=== PATIENT | male | born 1930 | race Caucasian/White ===

== ENCOUNTER 2016-09-10 18:24 | Emergency (ER) | payer MEDICARE ==
[2016-09-10 19:02] VITALS: BP 142/55
--- NOTE | 2016-09-10 19:30 | UC ---
Abdominal Pain Male HPI - HPI Summary HPI Summary: SUDDEN ONSET OF DIFFUSE "BURNING" ABDOMINAL PAIN TODAY AROUND NOON. FEVER 102.8 AT 4:30PM. TOOK 2 TYLENOL UNKNOWN STRENGTH. FEELS OVERALL MALAISE, FATIGUED, WEAK. DENIES CP, SOB, NAUSEA. NO DIARRHEA. URINE IS DARK. HAS SOME FREQUENCY BUT NO PAIN WITH URINATION. HAS HAD SOME INCONTINENCE TODAY WHICH IS UNUSUAL. FEELS BETTER NOW THAN AT ONSET. IS HERE VISITING FROM [place]. ARRIVED YESTERDAY. - History of Current Complaint Chief Complaint: UCAbdominalPain Stated Complaint: NAUSEA,FREQ URINATING,FEVER Time Seen by Provider: 09/10/16 18:40 Hx Obtained From: Patient, Family/Manager Pacu - Onset/Duration: Sudden Onset, Lasting Hours, Still Present Timing: Constant Severity Initially: Moderate Severity Currently: Moderate Pain Intensity: 3 Pain Scale Used: 0-10 Numeric Location: Diffuse Radiates: No Character: Burning Aggravating Factor(s):: Nothing Alleviating Factor(s): Rest Associated Signs And Symptoms: Positive: Fever, Urinary Symptoms. Negative: Cough, Chest Pain, Back Pain, Constipation, Blood in Stool, Decreased Appetite, Nausea, Vomiting, Diarrhea, Penile Discharge - Allergies/Home Medications Allergies/Adverse Reactions: Allergies Allergy/AdvReac Type Severity Reaction Status Date / Time Penicillins Allergy Rash Verified 09/10/16 18:50 Home Medications: Home Medications Acetaminophen TAB* [Tylenol TAB*] 650 mg PO Q6H PRN 09/10/16 [History Confirmed 09/10/16] Aspirin [Aspirin Adult Low Strengt] 09/10/16 [History] Folic Acid 800 mcg PO 09/10/16 [History] Lisinopril [Zestril 10 MG-] 10 mg PO DAILY 09/10/16 [History Confirmed 09/10/16] Metoprolol Succinate [Toprol Xl] 25 mg PO 09/10/16 [History] Omeprazole CAP* [Prilosec CAP* 20 MG] 20 mg PO DAILY 09/10/16 [History Confirmed 09/10/16] PMH/Surg Hx/FS Hx/Imm Hx - Additional Past Medical History Additional PMH: COLD AGGLUTININ AUTOIMMUNE DISORDER Cardiovascular History: Hypertension, Atrial Fibrillation Other Cancer History: LYMPHOMA - Surgical History Surgical History: Yes Surgery Procedure, Year, and Place: R hip reduction Mar 2016. appendectomy. tonsilectomy - Family History Known Family History: Negative: Hypertension - Social History Alcohol Use: Occasionally Substance Use Type: None Smoking Status (MU): Never Smoked Tobacco - Immunization History Most Recent Pneumonia Vaccination: Pt states has had it. Review of Systems Constitutional: Fever, Chills, Fatigue Respiratory: Negative Cardiovascular: Negative Gastrointestinal: Abdominal Pain Genitourinary: Frequency, Urgency, Other - INCONTINENT All Other Systems Reviewed And Are Negative: Yes Physical Exam Triage Information Reviewed: Yes Appearance: No Pain Distress, Well-Nourished, Ill-Appearing - APPEARS FATIGUED AND PALE Vital Signs: Initial Vital Signs Temp 98.9 F 09/10/16 18:53 Pulse 108 09/10/16 18:53 Resp 36 09/10/16 18:53 BP 142/55 09/10/16 18:53 Pulse Ox 98 09/10/16 18:53 Vital Signs Reviewed: Yes Eyes: Positive: Conjunctiva Clear ENT: Positive: Hearing grossly normal Neck: Positive: Supple Respiratory: Positive: Lungs clear, No respiratory distress, No accessory muscle use, Other: - TACHYPNEA. Negative: Accessory muscle use Cardiovascular: Positive: Tachycardia Abdomen Description: Positive: Soft, Other: - MILD TENDERNESS DIFFUSELY. NO RIGIDITY OR REBOUND. Negative: CVA Tenderness (R), CVA Tenderness (L), Distended, Guarding Bowel Sounds: Positive: Present Musculoskeletal: Positive: No Edema Neurological: Positive: Alert Psychological: Positive: Normal Response To Family, Age Appropriate Behavior Skin: Positive: Other - APPEARS PALE/YELLOW - PER THIS IS HIS NORMAL COLORATION. Negative: rashes Abd Pain Male Course/Dx - Course Course Of Treatment: PT UNABLE TO PROVIDE URINE SAMPLE. GIVEN CONSTELLATION OF SX WILL SEND TO ER FOR FURTHER EVAL. - Differential Dx/Clinical Impression Provider Diagnoses: ABDOMINAL PAIN/FEVER - Physician Notification/Consults Discussed Patient Care With: Penny Terrell - TO [facility] BY PRIVATE AR Time Discussed With Above Provider: 19:33 Instructed by Provider To: Will See In ED Discharge - Discharge Plan Condition: Fair Disposition: AGAINST MEDICAL ADVICE
== END 2016-09-10 19:25 | disposition left against medical advice (07) ==
LOC: UCEAST 18:24
DX: R10.84 Generalized abdominal pain (principal); R50.9 Fever, unspecified; I10 Essential (primary) hypertension; Z86.79 Personal history of other diseases of the circulatory system; Z85.72 Personal history of non-Hodgkin lymphomas
CPT/HCPCS: 99203; G0463

== ENCOUNTER 2016-09-10 20:00 | Inpatient (IN) | payer MEDICARE ==
--- NOTE | 2016-09-10 20:46 | RAD ---
INDICATION: Cough. Fever. Pneumonia. COMPARISON: None TECHNIQUE: An AP portable view obtained at 2022 hours is submitted. FINDINGS: Bones/Soft Tissues: There are no acute bony findings. Cardiomediastinal: The cardiomediastinal silhouette is normal. Lungs: There is infiltrate or atelectasis in left lung base with a 13 mm nodular opacity. Suggest follow-up. The remaining lung [place] are clear. Pleura: There are no pleural effusions. Other: None IMPRESSION: Small left basilar infiltrate or atelectasis with a left-sided nodule. Following therapy, suggest follow-up imaging to document complete resolution and exclude an underlying abnormality.
[2016-09-10 20:52] LABS: Comments Flag Yes; Hematocrit 26 % (42-52); Hemoglobin 8.7 g/dl (14.0-18.0); Mean Corpuscular HGB Conc 34 g/dl (31-36); Mean Corpuscular Hemoglobin 32 pg (27-31); Mean Corpuscular Volume 95 fL (80-94); Mean Platelet Volume 8 um3 (7.4-10.4); Red Blood Count 2.71 10^6/ul (4.0-5.4); Red Cell Distribution Width 16 % (10.5-15); White Blood Count 1.7 10^3/ul (3.5-10.8)
[2016-09-10 20:53] LABS: Add Diff/Slide Review? Slide Review Added
[2016-09-10 21:08] LABS: Albumin 3.9 g/dL (3.2-5.2); C Reactive Protein 10.61 mg/L (< 5.00); Calcium 8.9 mg/dL (8.6-10.3); EGFR African American 62.1 (>60); EGFR Non-African American 48.3 (>60); Globulin 1.6 g/dL (2-4); Potassium 3.6 mmol/L (3.5-5.0); Total Protein 5.5 g/dL (6.4-8.9)
[2016-09-10 21:10] LABS: Magnesium 1.5 mg/dL (1.9-2.7); Total Bilirubin 13.3 mg/dL (0.2-1.0); Troponin I 0.02 ng/mL (<0.04)
[2016-09-10] MEDS ORDERED: Ondansetron INJ* 2 MG/ML VIAL IV PRN (21:13)
[2016-09-10] MEDS ORDERED: traMADol TAB* 50 MG PO PRN (21:13)
[2016-09-10] MEDS ORDERED: Melatonin (NF) 3 MG TAB PO PRN (21:13)
[2016-09-10] MEDS ORDERED: cefTRIAXone(*) 1 GM ADVAN ONE (21:22)
--- NOTE | 2016-09-10 21:29 | HP ---
H&P (Free Text) History and Physical: PCP: [id number] Date/Time of Evaluation: 09/10/2016 2115 CC: abdominal burning HPI: Mr Torres is an 86YO male resident of [place] in town for his granddaughter's graduation who awoke this AM in his usual health to develop epigastric burning around noon lasting to 1600 before resolving. TUMS did not help. He then developed chills with a fever of 102.8F. He has had some increased urinary frequency with incontinence, but denies cough, congestion, N/V , chest pain, SOB, light-headedness, or other issues. 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 PMedHx marginal zone B-cell lymphoma B pneumonia admitted in [place], [place] July 2016 cold agglutinin disease chronic hemolytic anemia splenomegaly transfusion reaction HTN CKD GERD Ambulatory Orders Acetaminophen TAB* [Tylenol TAB*] 650 mg PO Q6H PRN 09/10/16 Aspirin [Aspirin Adult Low Strengt] 09/10/16 Folic Acid 800 mcg PO 09/10/16 Lisinopril [Zestril 10 MG-] 10 mg PO DAILY 09/10/16 Metoprolol Succinate [Toprol Xl] 25 mg PO 09/10/16 Omeprazole CAP* [Prilosec CAP* 20 MG] 20 mg PO DAILY 09/10/16 Allergies Penicillins Allergy (Verified 09/10/16 18:50) Rash PSurgHx R hip pinning w/ padilla Mar 2016 appendecomy tonsillectomy SocHx: no tobacco, alcohol, or recreational drug HX; live with his in [place]; 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 Father passed of prostate CA in his 80s. Older brother is alive at 93 with cold agglutinin disease & chronic leukemia in remission. Oldest sister passed of colon CA in her 60s. ROS: as above, otherwise reviewed and all were negative Constitutional: NAD, normally developed, well-nourished elderly white male vitals: Vital Signs Temp 36.5 C 09/10/16 20:50 Pulse 100 09/10/16 20:50 Resp 20 09/10/16 20:50 BP 127/60 09/10/16 20:50 Pulse Ox 97 09/10/16 20:50 Intake & Output 09/09/16 09/10/16 09/10/16 23:59 11:59 23:59 Weight 81.647 kg Other: Date of Last Bowel 09/10/16 Movement Estimated Stool Amount Medium HEENM: atraumatic; sclera/conjunctiva: icteric/clear; blephara: normal; hearing : clinically intact; oropharynx: clear, mucosa moist Neck: soft tissue: non-tender; thyroid: normal Pulmonary: clear to auscultation bilaterally, good aeration, no accessory muscle use CV: RR/RR, normal S1S2, no carotid bruit, no jugular venous distention, 2+ B DP/ PT, trace BLE edema Abdominal: soft, non-distended, non-tender, no rebound/guarding/rigidity, normoactive bowel sounds, no hepatosplenomegaly or masses, no costovertebral angle tenderness Musculoskeletal: general: grossly intact; gait: stable Integumental: jaundice; otherwise normal appearance and texture Psychiatric orientation: AA&O to PPS affect: calm mood: cooperative eye contact: good content: reliable responses: timely insight: good Testing: Lab Results 09/10/16 09/10/16 09/10/16 Range/Units 20:41 20:41 20:41 WBC 1.7 L (3.5-10.8) 10^3/ul RBC 2.71 L (4.0-5.4) 10^6/ul Hgb 8.7 L (14.0-18.0) g/dl Hct 26 L (42-52) % MCV 95 H (80-94) fL MCH 32 H (27-31) pg MCHC 34 (31-36) g/dl RDW 16 H (10.5-15) % Plt Count 78 L (150-450) 10^3/ul MPV 8 (7.4-10.4) um3 Neut % (Auto) 70.1 (38-83) % Lymph % (Auto) 5.2 L (25-47) % [place] % (Auto) 23.7 H (1-9) % Eos % (Auto) 0.3 (0-6) % Baso % (Auto) 0.7 (0-2) % Absolute Neuts (auto) 1.2 L (1.5-7.7) 10^3/ul Absolute Lymphs (auto) 0.1 L (1.0-4.8) 10^3/ul Absolute Monos (auto) 0.4 (0-0.8) 10^3/ul Absolute Eos (auto) 0 (0-0.6) 10^3/ul Absolute Basos (auto) 0 (0-0.2) 10^3/ul Absolute Nucleated RBC 0.01 10^3/ul Nucleated RBC % 0.6 INR (Anticoag Therapy) 1.21 H (0.89-1.11) APTT 24.5 L (26.0-36.3) seconds Sodium 135 (133-145) mmol/L Potassium 3.6 (3.5-5.0) mmol/L Chloride 103 (101-111) mmol/L Carbon Dioxide 23 (22-32) mmol/L Anion Gap 9 (2-11) mmol/L BUN 28 H (6-24) mg/dL Creatinine 1.40 H (0.67-1.17) mg/dL Est GFR ( Amer) 62.1 (>60) Est GFR (Non-Af Amer) 48.3 (>60) BUN/Creatinine Ratio 20.0 (8-20) Glucose 136 H (70-100) mg/dL Lactic Acid (0.5-2.0) mmol/L Calcium 8.9 (8.6-10.3) mg/dL Magnesium 1.5 L (1.9-2.7) mg/dL Total Bilirubin 13.30 H* (0.2-1.0) mg/dL AST 315 H (13-39) U/L ALT 297 H (7-52) U/L Alkaline Phosphatase 254 H (34-104) U/L Total Creatine Kinase 40 (10-223) U/L Troponin I 0.02 (<0.04) ng/mL C-Reactive Protein 10.61 H (< 5.00) mg/L B-Natriuretic Peptide ( - 100) pg/mL Total Protein 5.5 L (6.4-8.9) g/dL Albumin 3.9 (3.2-5.2) g/dL Globulin 1.6 L (2-4) g/dL Albumin/Globulin Ratio 2.4 (1-3) Amylase 30 (29-103) U/L Lipase 37 (11.0-82.0) U/L 09/10/16 09/10/16 Range/Units 20:41 20:41 WBC (3.5-10.8) 10^3/ul RBC (4.0-5.4) 10^6/ul Hgb (14.0-18.0) g/dl Hct (42-52) % MCV (80-94) fL MCH (27-31) pg MCHC (31-36) g/dl RDW (10.5-15) % Plt Count (150-450) 10^3/ul MPV (7.4-10.4) um3 Neut % (Auto) (38-83) % Lymph % (Auto) (25-47) % [place] % (Auto) (1-9) % Eos % (Auto) (0-6) % Baso % (Auto) (0-2) % Absolute Neuts (auto) (1.5-7.7) 10^3/ul Absolute Lymphs (auto) (1.0-4.8) 10^3/ul Absolute Monos (auto) (0-0.8) 10^3/ul Absolute Eos (auto) (0-0.6) 10^3/ul Absolute Basos (auto) (0-0.2) 10^3/ul Absolute Nucleated RBC 10^3/ul Nucleated RBC % INR (Anticoag Therapy) (0.89-1.11) APTT (26.0-36.3) seconds Sodium (133-145) mmol/L Potassium (3.5-5.0) mmol/L Chloride (101-111) mmol/L Carbon Dioxide (22-32) mmol/L Anion Gap (2-11) mmol/L BUN (6-24) mg/dL Creatinine (0.67-1.17) mg/dL Est GFR ( Amer) (>60) Est GFR (Non-Af Amer) (>60) BUN/Creatinine Ratio (8-20) Glucose (70-100) mg/dL Lactic Acid 2.1 H* (0.5-2.0) mmol/L Calcium (8.6-10.3) mg/dL Magnesium (1.9-2.7) mg/dL Total Bilirubin (0.2-1.0) mg/dL AST (13-39) U/L ALT (7-52) U/L Alkaline Phosphatase (34-104) U/L Total Creatine Kinase (10-223) U/L Troponin I (<0.04) ng/mL C-Reactive Protein (< 5.00) mg/L B-Natriuretic Peptide 110 H ( - 100) pg/mL Total Protein (6.4-8.9) g/dL Albumin (3.2-5.2) g/dL Globulin (2-4) g/dL Albumin/Globulin Ratio (1-3) Amylase (29-103) U/L Lipase (11.0-82.0) U/L ECG, personally reviewed: sinus tachycardia rate 101, no ischemia CXR, personally reviewed: IMPRESSION: Small left basilar infiltrate or atelectasis with a left-sided nodule. Following therapy, suggest follow-up imaging to document complete resolution and exclude an underlying abnormality. Impression: 86M HX B-cell lymphoma, recent pneumonia presents w/ LLL pneumonia DIAGNOSIS & PLAN Primary LLL pneumonia, community acquired : B pneumonia admitted in [place], [place] July 2016, request records : ANC 1.2k : IV ceftriaxone & azithromycin : IVFs : blood & sputum CXs : obtain records from PCP in [place] : supplemental oxygen : incentive spirometry : guiafenesin : supportive care Secondary marginal zone B-cell lymphoma : continue outpatient follow up with oncology cold agglutinin disease w/ chronic hemolytic anemia, & splenomegaly : periodic monitoring of H&H for progressive hemolysis HX transfusion reaction : no indication currently for transfusion HTN : continue lisinopril & metoprolol CKD : trend function GERD : continue omeprazole Admission Rational: inpatient for IVFs & IV ABX for LLL pneumonia in a patient at risk of rapid/terminal decompensation in the outpatient setting DVTp: heparin SQ & SCDs Code Status: full HCP:
[2016-09-10] MEDS ORDERED: Azithromycin IV(*) 500 MG in NS 0.9% 250 ML* 250 ML IVPB SCH (22:00)
[2016-09-10] MEDS ORDERED: cefTRIAXone VIAL(*) 1,000 MG in NS 0.9% 50 ML* 50 ML IVPB SCH (22:00)
--- NOTE | 2016-09-10 22:57 | ED ---
Nery Kirk Rebecca, scribed for Penny Terrell MD on 09/10/16 at 2021 . Abdominal Pain/Male - HPI Summary HPI Summary: Pt is an 86 y/o M referred from [facility] who presents to ED c/o abdominal pain. Sx began suddenly at 1200 today and has been constant since onset. Pain characterized as diffuse abdominal burning and is currently not present. Pain was 3/10 while being evaluated at [facility] and is currently ranked 0/10. Sx aggravated and alleviated by nothing, unchanged by lying flat. He additionally c/o fever, chills, generalized weakness, vomiting, urinary incontinence. Reports a fever of 102.8 at home at approximately 1630. Previously had a cough which was resolved completely by Mucinex DM, taken last night. Denies SOB. He was administered Tylenol at 1630 and it continued to be elevated. PMHx cold agglutinin disease (Dx 35 years ago), reporting his Hgb is 9 when it is doing well. PMHx PNA - [place] August 06[place]2016 and was on broad spectrum IV Abx (unsure of name). Pt is currently undergoing treatments for lymphoma (Dx February 2016) as well as the cold agglutinin disease. Pt states he cannot take levaquin, had a muscle reaction to that. Pt is visiting from [place]. Is scheduled for more chemo for his lymphoma on 09/13/16. - History of Current Complaint Chief Complaint: EDAbdPain Stated Complaint: ABD PAIN/CONV CARE Time Seen by Provider: 09/10/16 20:09 Hx Obtained From: Patient, Family/Behavioral Therapist - Onset/Duration: Sudden Onset, Lasting Hours, Still Present Timing: Constant Severity Initially: Mild - 3/10 Severity Currently: None Pain Intensity: 0 Pain Scale Used: 0-10 Numeric Location: Diffuse Radiates: No Character: Burning Aggravating Factor(s): Nothing Alleviating Factor(s): Nothing Associated Signs And Symptoms: Positive: Fever, Cough - resolved by Mucinex DM, Urinary Symptoms - Urinary incontinence, Vomiting, Other - Chills, generalized weakness; Denies SOB - Allergies/Home Medications Allergies/Adverse Reactions: Allergies Allergy/AdvReac Type Severity Reaction Status Date / Time Penicillins Allergy Rash Verified 09/10/16 18:50 PMH/Surg Hx/FS Hx/Imm Hx Previously Healthy: No Endocrine/Hematology History: Reports: Autoimmune Disease - Cold agglutinin disease Cardiovascular History: Reports: Hx Atrial Fibrillation, Hx Hypertension Respiratory History: Reports: Hx Pneumonia GI History: Reports: Hx Jaundice - from cold agglutinin disease - Cancer History Cancer Type, Location and Year: lymphoma Hx Chemotherapy: Yes - Surgical History Surgery Procedure, Year, and Place: R hip reduction Mar 2016. appendectomy. tonsilectomy Infectious Disease History: Reports: Hx Shingles Denies: Traveled Outside the [place] in Last 30 Days - Family History Known Family History: Negative: Hypertension - Social History Occupation: Retired Lives: With Family - in [place] Alcohol Use: Occasionally Substance Use Type: Reports: None Smoking Status (MU): Never Smoked Tobacco Review of Systems Positive: Fever - 102.8 at home, Chills, Other - generalized weakness Cardiovascular: Negative Positive: Cough - Resolved by Mucinex DM. Negative: Shortness Of Breath Positive: Abdominal Pain - diffuse burning, resolved, Vomiting Positive: incontinence - Urinary Positive: Other - jaundiced Neurological: Negative Psychological: Normal All Other Systems Reviewed And Are Negative: Yes Physical Exam Triage Information Reviewed: Yes Vital Signs On Initial Exam: Initial Vitals Temp Pulse Resp BP Pulse Ox 97.7 F 107 18 118/46 100 09/10/16 20:04 09/10/16 20:04 09/10/16 20:04 09/10/16 20:04 09/10/16 20:04 Vital Signs Reviewed: Yes Appearance: Positive: No Pain Distress, Well-Nourished, Ill-Appearing Skin: Positive: Jaundiced, Pale, Other - Sallow, appears jaundiced Eyes: Positive: Conjunctiva Clear ENT: Positive: Normal ENT inspection. Negative: Muffled/hoarse voice Neck: Positive: Supple Respiratory/Lung Sounds: Positive: Clear to Auscultation, Breath Sounds Present , Other - No respiratory distress Cardiovascular: Positive: RRR, Pulses are Symmetrical in both Upper and Lower Extremities, Other - Brisk capillary refill. Negative: Murmur Abdomen Description: Positive: Nontender, Soft, Splenomegaly - At least 3 fingers breadth below the costal margin Bowel Sounds: Positive: Present Musculoskeletal: Positive: Strength/ROM Intact Neurological: Positive: Alert, Oriented to Person Place, Time, Other - Muscle tone normal. Negative: Focal Deficit @, Slurred Speech Psychiatric: Positive: Normal Diagnostics - Vital Signs Vital Signs Temp Pulse Resp BP Pulse Ox 06/23/17 20:04 97.7 F 107 18 118/46 100 - Laboratory Lab Results: Lab Results 09/10/16 09/10/16 09/10/16 Range/Units 20:41 20:41 20:41 WBC 1.7 L (3.5-10.8) 10^3/ul RBC 2.71 L (4.0-5.4) 10^6/ul Hgb 8.7 L (14.0-18.0) g/dl Hct 26 L (42-52) % MCV 95 H (80-94) fL MCH 32 H (27-31) pg MCHC 34 (31-36) g/dl RDW 16 H (10.5-15) % Plt Count 78 L (150-450) 10^3/ul MPV 8 (7.4-10.4) um3 Neut % (Auto) 70.1 (38-83) % Lymph % (Auto) 5.2 L (25-47) % [place] % (Auto) 23.7 H (1-9) % Eos % (Auto) 0.3 (0-6) % Baso % (Auto) 0.7 (0-2) % Absolute Neuts (auto) 1.2 L (1.5-7.7) 10^3/ul Absolute Lymphs (auto) 0.1 L (1.0-4.8) 10^3/ul Absolute Monos (auto) 0.4 (0-0.8) 10^3/ul Absolute Eos (auto) 0 (0-0.6) 10^3/ul Absolute Basos (auto) 0 (0-0.2) 10^3/ul Absolute Nucleated RBC 0.01 10^3/ul Nucleated RBC % 0.6 Hem Pathologist Commnt Pending INR (Anticoag Therapy) 1.21 H (0.89-1.11) APTT 24.5 L (26.0-36.3) seconds Sodium 135 (133-145) mmol/L Potassium 3.6 (3.5-5.0) mmol/L Chloride 103 (101-111) mmol/L Carbon Dioxide 23 (22-32) mmol/L Anion Gap 9 (2-11) mmol/L BUN 28 H (6-24) mg/dL Creatinine 1.40 H (0.67-1.17) mg/dL Est GFR ( Amer) 62.1 (>60) Est GFR (Non-Af Amer) 48.3 (>60) BUN/Creatinine Ratio 20.0 (8-20) Glucose 136 H (70-100) mg/dL Lactic Acid (0.5-2.0) mmol/L Calcium 8.9 (8.6-10.3) mg/dL Magnesium 1.5 L (1.9-2.7) mg/dL Total Bilirubin 13.30 H* (0.2-1.0) mg/dL AST 315 H (13-39) U/L ALT 297 H (7-52) U/L Alkaline Phosphatase 254 H (34-104) U/L Total Creatine Kinase 40 (10-223) U/L Troponin I 0.02 (<0.04) ng/mL C-Reactive Protein 10.61 H (< 5.00) mg/L B-Natriuretic Peptide ( - 100) pg/mL Total Protein 5.5 L (6.4-8.9) g/dL Albumin 3.9 (3.2-5.2) g/dL Globulin 1.6 L (2-4) g/dL Albumin/Globulin Ratio 2.4 (1-3) Amylase 30 (29-103) U/L Lipase 37 (11.0-82.0) U/L 09/10/16/ Range/Units 20:41 20:41 WBC (3.5-10.8) 10^3/ul RBC (4.0-5.4) 10^6/ul Hgb (14.0-18.0) g/dl Hct (42-52) % MCV (80-94) fL MCH (27-31) pg MCHC (31-36) g/dl RDW (10.5-15) % Plt Count (150-450) 10^3/ul MPV (7.4-10.4) um3 Neut % (Auto) (38-83) % Lymph % (Auto) (25-47) % [place] % (Auto) (1-9) % Eos % (Auto) (0-6) % Baso % (Auto) (0-2) % Absolute Neuts (auto) (1.5-7.7) 10^3/ul Absolute Lymphs (auto) (1.0-4.8) 10^3/ul Absolute Monos (auto) (0-0.8) 10^3/ul Absolute Eos (auto) (0-0.6) 10^3/ul Absolute Basos (auto) (0-0.2) 10^3/ul Absolute Nucleated RBC 10^3/ul Nucleated RBC % Hem Pathologist Commnt INR (Anticoag Therapy) (0.89-1.11) APTT (26.0-36.3) seconds Sodium (133-145) mmol/L Potassium (3.5-5.0) mmol/L Chloride (101-111) mmol/L Carbon Dioxide (22-32) mmol/L Anion Gap (2-11) mmol/L BUN (6-24) mg/dL Creatinine (0.67-1.17) mg/dL Est GFR ( Amer) (>60) Est GFR (Non-Af Amer) (>60) BUN/Creatinine Ratio (8-20) Glucose (70-100) mg/dL Lactic Acid 2.1 H* (0.5-2.0) mmol/L Calcium (8.6-10.3) mg/dL Magnesium (1.9-2.7) mg/dL Total Bilirubin (0.2-1.0) mg/dL AST (13-39) U/L ALT (7-52) U/L Alkaline Phosphatase (34-104) U/L Total Creatine Kinase (10-223) U/L Troponin I (<0.04) ng/mL C-Reactive Protein (< 5.00) mg/L B-Natriuretic Peptide 110 H ( - 100) pg/mL Total Protein (6.4-8.9) g/dL Albumin (3.2-5.2) g/dL Globulin (2-4) g/dL Albumin/Globulin Ratio (1-3) Amylase (29-103) U/L Lipase (11.0-82.0) U/L Result Diagrams: 09/10/16 20:41 09/10/16 20:41 Lab Statement: Any lab studies that have been ordered have been reviewed, and results considered in the medical decision making process. - Radiology CXR Xray Interpretation: Positive (See Comments) - Small left basilar infiltrate or atelectasis with a left-sided nodule. Following therapy, suggest follow-up imaging to document complete resolution and exclude an underlying abnormality. Radiology Interpretation Completed By: Radiologist - EKG 2058 Cardiac Rate: Tachycardia - 101 bpm EKG Rhythm: Sinus Tachycardia EKG Interpretation: Nl AV/IV CT, nl QTC, negative axis (-27), LAD, no acute changes Re-Evaluation - Re-Evaluation First Eval Re-Evaluation Time: 21:12 Change: Unchanged Comment: Discussed CXR, EKG and lab results with patient. Explained discussion with Dr. Islas and that the pt will be admitted. Abdominal Pain Fem Course/Dx - Course Assessment/Plan: Pt is an 86 y/o M referred from [facility] who presents to ED c/o diffuse, burning abdominal pain since 1200 today. Pain was 3/10 while being evaluated at [facility] and is currently ranked 0/10. Sx aggravated and alleviated by nothing, unchanged by lying flat. He additionally c/o fever, chills, generalized weakness, vomiting, urinary incontinence. Reports a fever of 102.8 at home at approximately 1630. Previously had a cough which was resolved completely by Mucinex DM, taken last night. Denies SOB. He was administered Tylenol at 1630 and it continued to be elevated. PMHx cold agglutinin disease ( Dx 35 years ago), reporting his Hgb is 9 when it is doing well. PMHx PNA - [place] and was on broad spectrum IV Abx ( unsure of name). Pt is currently undergoing treatments for lymphoma (Dx February 2016) as well as the cold agglutinin disease. CXR reveals "Small left basilar infiltrate or atelectasis with a left-sided nodule. Following therapy, suggest follow-up imaging to document complete resolution and exclude an underlying abnormality." WBC of 1.7, RBC of 2.7, Lactic acid of 2.1, Total Bilirubin of 13.3, Hgb of 8.7, INR of 1.21, BNP of 110, APTT of 24.5, CRP of 10.61. Discussed care of pt with Dr. Islas, who accepts pt for admission. Pt will be admitted to hospitalist services with a Dx of left lower lobe PNA. He understands and agrees. Pt medications reviewed this visit. Allergies noted. - Diagnoses Differential Diagnosis/HQI/PQRI: Ischemic Bowel, Pancreatitis, Pneumonia, Urinary Tract Infection Provider Diagnoses: Left lower lobe pneumonia, Jaundice, Pancytopenia - Provider Notifications Discussed Care Of Patient With: Channing Islas Time Discussed With Above Provider: 21:10 Instructed by Provider To: Admit As Inpatient - Accepts pt for admission - Critical Care Time Critical Care Time: 30-74 min Discharge - Discharge Plan Condition: Good Disposition: ADMITTED TO [facility] Referrals: No Primary Care Phys,NOPCP [Primary Care Provider] - The documentation as recorded by the Nery king Rebecca accurately reflects the service I personally performed and the decisions made by , Penny Terrell MD.
[2016-09-10 23:35] LABS: Urine Bilirubin 1+ (Negative); Urine Glucose Negative (Negative); Urine Nitrite Negative (Negative)
[2016-09-10 23:36] LABS: Urine Bacteria 1+ (Absent)
[2016-09-11] MEDS: NS 0.9% 1000 ML* 1,000 ML IV SCH ×3 (00:12→13:33)
[2016-09-11] MEDS: Heparin VIAL(*) 5000 UNITS/ML VIAL (FIVE THOUSAND) SUBCUT SCH ×4 (05:36→22:16)
[2016-09-11] MEDS ORDERED: Omeprazole CAP* 20 MG PO SCH (06:00)
[2016-09-11 07:24] LABS: BUN/Creatinine Ratio 19.2 (8-20); Calcium 8.5 mg/dL (8.6-10.3); EGFR African American 70.8 (>60); Potassium 4.3 mmol/L (3.5-5.0)
[2016-09-11 08:43] LABS: Hematocrit 25 % (42-52); Hemoglobin 8.3 g/dl (14.0-18.0); Mean Corpuscular HGB Conc 33 g/dl (31-36); Mean Corpuscular Hemoglobin 30 pg (27-31); Mean Platelet Volume 9 um3 (7.4-10.4); Red Cell Distribution Width 16 % (10.5-15)
[2016-09-11] MEDS: Docusate CAP* 100 MG PO SCH ×2 (08:52→22:13)
[2016-09-11] MEDS: Lisinopril TAB* 10 MG PO SCH (08:52)
[2016-09-11] MEDS: Omeprazole CAP* 20 MG PO SCH (08:52)
[2016-09-11] MEDS: Aspirin Low Dose CHEW TAB* 81 MG PO SCH (08:53)
[2016-09-11] MEDS: Folic Acid TAB* 1 MG PO SCH (08:53)
[2016-09-11] MEDS: guaiFENesin ER TAB 600 MG PO SCH ×2 (08:53→22:15)
[2016-09-11] MEDS: Metoprolol Succinate XL TAB* 25 MG PO SCH (08:53)
[2016-09-11 08:54] LABS: Comments Flag Yes; White Blood Count 2.4 10^3/ul (3.5-10.8)
[2016-09-11 08:55] LABS: Mean Corpuscular Volume 90 fL (80-94)
[2016-09-11 09:28] LABS: Albumin 3.6 g/dL (3.2-5.2); Globulin 1.3 g/dL (2-4); Total Protein 4.9 g/dL (6.4-8.9)
[2016-09-11 09:49] LABS: Direct Bilirubin 14.7 mg/dL (0.03-0.18); Magnesium 1.7 mg/dL (1.9-2.7); Total Bilirubin 17.7 mg/dL (0.2-1.0)
[2016-09-11] MEDS: metroNIDAZOLE IV 500 MG/100ML* 500 MG/100 ML BAG IVPB SCH ×2 (13:33→22:11)
--- NOTE | 2016-09-11 14:32 | RAD ---
INDICATION: Right upper quadrant pain. COMPARISON: There are no prior studies available for comparison. TECHNIQUE: Multiple real-time images of the right upper quadrant were obtained. FINDINGS: There are multiple gallstones and biliary sludge present. No gallbladder wall thickening or pericholecystic fluid was present. No positive sonographic Hernandez sign is seen. No intra or extrahepatic ductal distention is present. The common bile duct measured 0.3 cm in diameter. The liver is normal in size. There is a focal hyperechoic lesion with some shadowing present in the anterior portion of the right hepatic lobe measuring 2.2 x 2.0 x 1.8 cm in size. The pancreas is partially obscured by overlying bowel gas although no pancreatic ductal distention is seen. The right kidney is normal in size without evidence for hydronephrosis. IMPRESSION: 1. CHOLELITHIASIS AND BILIARY SLUDGE. 2. 2 CM LESION IN THE RIGHT HEPATIC LOBE. RECOMMEND A CT SCAN OF THE ABDOMEN WITHOUT AND WITH CONTRAST FOR FURTHER EVALUATION.
--- NOTE | 2016-09-11 16:37 | PN ---
Subjective Date of Service: 09/11/16 Interval History: Seen with at bedside abdominal burning has resolved Was nauseous but now resolved no other complaints Objective Active Medications: Acetaminophen (Tylenol Tab*) 650 mg PO Q6H PRN PRN Reason: FEVER/PAIN Aspirin (Aspirin Low Dose Tab*) 81 mg PO QAM [facility] Last Admin: 09/11/16 08:53 Dose: 81 mg Docusate Sodium (Colace Cap*) 200 mg PO BID [facility] Last Admin: 09/11/16 08:52 Dose: 200 mg Folic Acid (Folvite Tab*) 1 mg PO DAILY [facility] Last Admin: 09/11/16 08:53 Dose: 1 mg Guaifenesin (Mucinex*) 1,200 mg PO BID [facility] Last Admin: 09/11/16 08:53 Dose: 1,200 mg Heparin Sodium (Porcine) (Heparin Vial(*)) 5,000 units SUBCUT Q8HR [facility] Last Admin: 09/11/16 14:19 Dose: 5,000 units Sodium Chloride (Ns 0.9% 1000 Ml*) 1,000 mls @ 85 mls/hr IV PER RATE [facility] Last Admin: 09/11/16 13:33 Dose: 85 mls/hr Metronidazole/Sodium Chloride (Flagyl 500 Mg Ivpb*) 500 mg in 100 mls @ 100 mls /hr IVPB Q8H [facility] Last Admin: 09/11/16 13:33 Dose: 100 mls/hr Lisinopril (Prinivil Tab*) 10 mg PO DAILY [facility] Last Admin: 09/11/16 08:52 Dose: 10 mg Melatonin (Melatonin (Nf)) 3 mg PO BEDTIME PRN; Protocol PRN Reason: Sleep Metoprolol Succinate (Toprol Xl Tab*) 25 mg PO DAILY [facility] Last Admin: 09/11/16 08:53 Dose: 25 mg Omeprazole (Prilosec Cap*) 20 mg PO DAILY [facility] Last Admin: 09/11/16 08:52 Dose: 20 mg Ondansetron HCl (Zofran Inj*) 4 mg IV Q6H PRN PRN Reason: NAUSEA Tramadol HCl (Ultram*) 50 mg PO Q6H PRN PRN Reason: PAIN Vital Signs 09/10/16 09/11/16 09/11/16 23:34 00:02 04:00 Temperature 99.4 F 99.4 F 99.4 F Pulse Rate 104 104 97 Respiratory 18 18 16 Rate Blood Pressure 137/56 137/56 134/53 (mmHg) O2 Sat by Pulse 100 100 99 Oximetry 09/11/16 09/11/16 09/11/16 07:32 08:00 08:24 Temperature 99.0 F Pulse Rate 92 Respiratory 16 16 Rate Blood Pressure 118/53 (mmHg) O2 Sat by Pulse 99 99 Oximetry 09/11/16 11:42 Temperature 98.6 F Pulse Rate 71 Respiratory 16 Rate Blood Pressure 117/52 (mmHg) O2 Sat by Pulse 99 Oximetry Oxygen Devices in Use Now: None Appearance: jaundiced, NAD Eyes: No Scleral Icterus, PERRLA Ears/Nose/Mouth/Throat: NL Teeth, Lips, Gums, Clear Oropharnyx, Mucous Membranes Moist Neck: NL Appearance and Movements; NL JVP, Trachea Midline Respiratory: Symmetrical Chest Expansion and Respiratory Effort, Clear to Auscultation Cardiovascular: NL Sounds; No Murmurs; No JVD, RRR Abdominal: NL Sounds; No Tenderness; No Distention, No Hepatosplenomegaly Extremities: No Edema Skin: No Rash or Ulcers Neurological: Alert and Oriented x 3 Result Diagrams: 09/11/16 06:27 09/11/16 06:27 Additional Lab and Data: Lab Results 09/10/16 09/10/16 09/10/16 Range/Units 20:41 20:41 20:41 WBC 1.7 L (3.5-10.8) 10^3/ul RBC 2.71 L (4.0-5.4) 10^6/ul Hgb 8.7 L (14.0-18.0) g/dl Hct 26 L (42-52) % MCV 95 H (80-94) fL MCH 32 H (27-31) pg MCHC 34 (31-36) g/dl RDW 16 H (10.5-15) % Plt Count 78 L (150-450) 10^3/ul MPV 8 (7.4-10.4) um3 Neut % (Auto) 70.1 (38-83) % Lymph % (Auto) 5.2 L (25-47) % Real % (Auto) 23.7 H (1-9) % Eos % (Auto) 0.3 (0-6) % Baso % (Auto) 0.7 (0-2) % Absolute Neuts (auto) 1.2 L (1.5-7.7) 10^3/ul Absolute Lymphs (auto) 0.1 L (1.0-4.8) 10^3/ul Absolute Monos (auto) 0.4 (0-0.8) 10^3/ul Absolute Eos (auto) 0 (0-0.6) 10^3/ul Absolute Basos (auto) 0 (0-0.2) 10^3/ul Absolute Nucleated RBC 0.01 10^3/ul Nucleated RBC % 0.6 Hem Pathologist Commnt Pending INR (Anticoag Therapy) 1.21 H (0.89-1.11) APTT 24.5 L (26.0-36.3) seconds Sodium 135 (133-145) mmol/L Potassium 3.6 (3.5-5.0) mmol/L Chloride 103 (101-111) mmol/L Carbon Dioxide 23 (22-32) mmol/L Anion Gap 9 (2-11) mmol/L BUN 28 H (6-24) mg/dL Creatinine 1.40 H (0.67-1.17) mg/dL Est GFR ( Amer) 62.1 (>60) Est GFR (Non-Af Amer) 48.3 (>60) BUN/Creatinine Ratio 20.0 (8-20) Glucose 136 H (70-100) mg/dL Lactic Acid (0.5-2.0) mmol/L Calcium 8.9 (8.6-10.3) mg/dL Magnesium 1.5 L (1.9-2.7) mg/dL Total Bilirubin 13.30 H* (0.2-1.0) mg/dL AST 315 H (13-39) U/L ALT 297 H (7-52) U/L Alkaline Phosphatase 254 H (34-104) U/L Total Creatine Kinase 40 (10-223) U/L Troponin I 0.02 (<0.04) ng/mL C-Reactive Protein 10.61 H (< 5.00) mg/L B-Natriuretic Peptide ( - 100) pg/mL Total Protein 5.5 L (6.4-8.9) g/dL Albumin 3.9 (3.2-5.2) g/dL Globulin 1.6 L (2-4) g/dL Albumin/Globulin Ratio 2.4 (1-3) Amylase 30 (29-103) U/L Lipase 37 (11.0-82.0) U/L 09/10/16 09/10/16 Range/Units 20:41 20:41 WBC (3.5-10.8) 10^3/ul RBC (4.0-5.4) 10^6/ul Hgb (14.0-18.0) g/dl Hct (42-52) % MCV (80-94) fL MCH (27-31) pg MCHC (31-36) g/dl RDW (10.5-15) % Plt Count (150-450) 10^3/ul MPV (7.4-10.4) um3 Neut % (Auto) (38-83) % Lymph % (Auto) (25-47) % Real % (Auto) (1-9) % Eos % (Auto) (0-6) % Baso % (Auto) (0-2) % Absolute Neuts (auto) (1.5-7.7) 10^3/ul Absolute Lymphs (auto) (1.0-4.8) 10^3/ul Absolute Monos (auto) (0-0.8) 10^3/ul Absolute Eos (auto) (0-0.6) 10^3/ul Absolute Basos (auto) (0-0.2) 10^3/ul Absolute Nucleated RBC 10^3/ul Nucleated RBC % Hem Pathologist Commnt INR (Anticoag Therapy) (0.89-1.11) APTT (26.0-36.3) seconds Sodium (133-145) mmol/L Potassium (3.5-5.0) mmol/L Chloride (101-111) mmol/L Carbon Dioxide (22-32) mmol/L Anion Gap (2-11) mmol/L BUN (6-24) mg/dL Creatinine (0.67-1.17) mg/dL Est GFR ( Amer) (>60) Est GFR (Non-Af Amer) (>60) BUN/Creatinine Ratio (8-20) Glucose (70-100) mg/dL Lactic Acid 2.1 H* (0.5-2.0) mmol/L Calcium (8.6-10.3) mg/dL Magnesium (1.9-2.7) mg/dL Total Bilirubin (0.2-1.0) mg/dL AST (13-39) U/L ALT (7-52) U/L Alkaline Phosphatase (34-104) U/L Total Creatine Kinase (10-223) U/L Troponin I (<0.04) ng/mL C-Reactive Protein (< 5.00) mg/L B-Natriuretic Peptide 110 H ( - 100) pg/mL Total Protein (6.4-8.9) g/dL Albumin (3.2-5.2) g/dL Globulin (2-4) g/dL Albumin/Globulin Ratio (1-3) Amylase (29-103) U/L Lipase (11.0-82.0) U/L Assess/Plan/Problems-Billing Assessment: 86 yo M 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 Suspect may have passed stone. Doubt hemolytic anemia repeat lfts in AM check LDH ct abd/pelvis given 3cm liver mass (3) Cold agglutinin disease Comment: stable (4) Hypertension Comment: lisinopril (5) Liver mass Comment: 3cm seen on US will f/u with CT w/w/o contrast tomorrow if kidney fxn stable (6) Pancytopenia Comment: reviewed outpatient records (online) - baseline (7) DVT prophylaxis Comment: HSQ unless plts <50k
[2016-09-11] MEDS: Acetaminophen TAB* 325 MG PO PRN (22:15)
[2016-09-12] MEDS: metroNIDAZOLE IV 500 MG/100ML* 500 MG/100 ML BAG IVPB SCH ×3 (04:05→22:31)
[2016-09-12] MEDS: NS 0.9% 1000 ML* 1,000 ML IV SCH ×2 (04:10→23:45)
[2016-09-12] MEDS: Heparin VIAL(*) 5000 UNITS/ML VIAL (FIVE THOUSAND) SUBCUT SCH (05:28)
[2016-09-12 05:44] LABS: Albumin 3.1 g/dL (3.2-5.2); BUN/Creatinine Ratio 14.8 (8-20); Calcium 8.4 mg/dL (8.6-10.3); EGFR African American 68.9 (>60); EGFR Non-African American 53.5 (>60); Globulin 1.2 g/dL (2-4); Potassium 3.7 mmol/L (3.5-5.0); Total Protein 4.3 g/dL (6.4-8.9)
[2016-09-12 06:04] LABS: Direct Bilirubin 21.1 mg/dL (0.03-0.18); Indirect Bilirubin 5.6 mg/dL (0.3-1.0); Total Bilirubin 26.7 mg/dL (0.2-1.0)
[2016-09-12 06:20] LABS: Hematocrit 21 % (42-52); Hemoglobin 7.2 g/dl (14.0-18.0); Mean Corpuscular HGB Conc 34 g/dl (31-36); Mean Corpuscular Hemoglobin 33 pg (27-31); Mean Corpuscular Volume 95 fL (80-94); Mean Platelet Volume 9 um3 (7.4-10.4); Red Blood Count 2.21 10^6/ul (4.0-5.4); Red Cell Distribution Width 16 % (10.5-15)
[2016-09-12 06:21] LABS: Comments Flag Yes; White Blood Count 1.1 10^3/ul (3.5-10.8)
[2016-09-12 06:22] LABS: Add Diff/Slide Review? Slide Review Added
[2016-09-12] MEDS: Cefepime(*) 2 GM in NS 0.9% 50 ML* 50 ML IVPB SCH ×2 (09:16→20:32)
[2016-09-12] MEDS: Folic Acid TAB* 1 MG PO SCH (10:04)
[2016-09-12] MEDS: guaiFENesin ER TAB 600 MG PO SCH ×2 (10:04→22:36)
[2016-09-12] MEDS: Aspirin Low Dose CHEW TAB* 81 MG PO SCH (10:04)
[2016-09-12] MEDS: Docusate CAP* 100 MG PO SCH ×2 (10:04→22:35)
[2016-09-12] MEDS ORDERED: Iodixanol* (CONTRAST) 320 MG/ML 100 ML SDV IV ONE (12:46)
--- NOTE | 2016-09-12 13:54 | RAD ---
INDICATION: Liver mass. COMPARISON: Comparison is made with a prior right upper quadrant ultrasound from September 11, 2016. TECHNIQUE: A CT scan of the abdomen was performed without and with intravenous contrast enhancement and with oral contrast. The contrast enhanced portion of the exam was performed during the arterial and portal venous phases. The skin at the portal venous and phasic includes the abdomen and pelvis. The exam was performed following intravenous injection of 100 ml of Visipaque 320 nonionic contrast. Contiguous axial sections were obtained from the lung bases through the tops of the iliac crests. Images were reconstructed in the coronal and sagittal planes. FINDINGS: Images through the lung bases demonstrate a large calcification in the left lower lobe measuring 1.4 cm in size most consistent with a granuloma. There are small bilateral pleural effusions and bilateral calcified pleural plaques raising the possibility of prior asbestos exposure. The liver is normal in density with suggestion of some volume loss in the posterior segment of the right hepatic lobe raising the possibility of cirrhosis. There is a large coarse calcification present in the anterior portion of the right hepatic lobe which accounts for the prior ultrasound abnormality measuring 1.6 x 1.5 cm in size. No other significant focal hepatic abnormalities are seen. There is mild periportal edema. No intra or extrahepatic ductal distention is seen. The common bile duct measures 0.5 cm in diameter. There are small calcified gallstones present. The gallbladder is slightly distended. The spleen is markedly enlarged measuring 21.4 x 10.9 x 17.5 cm. No focal abnormality is seen. There are prominent varices present within the splenic hilum. The portal vein appears enlarged and demonstrate normal homogeneous contrast opacification. There is a small 0.7 cm cystic lesion present within the pancreatic body. The pancreas is normal in size. No pancreatic ductal distention is seen. There are mild calcifications within the pancreatic head suggesting the possibility of chronic pancreatitis. The adrenal glands are within normal limits. The kidneys are slightly small in size with bilateral cortical thinning. There are small bilateral renal cysts present. No hydronephrosis is seen. The aorta is normal in caliber and demonstrates homogeneous contrast opacification. No significant enlarged retroperitoneal lymph nodes are seen. The stomach and visualized portion of the small and large bowel appear nondistended. The patient is status post appendectomy by history. There is a left inguinal hernia containing nondistended small bowel and a small amount of free intraperitoneal fluid. There is a small amount of free intraperitoneal fluid present within the abdomen and pelvis. No free intraperitoneal air is seen. The patient is status post operative reduction internal fixation of a comminuted intertrochanteric fracture of the right femur. There is is an intramedullary padilla in the femoral head nail present. The fracture fragments appear ununited. There is some bony callus present. IMPRESSION: 1. SMALL BILATERAL PLEURAL EFFUSIONS. 2. BILATERAL CALCIFIED PLEURAL PLAQUES SUGGESTING THE POSSIBILITY OF PRIOR ASBESTOS EXPOSURE. 3. THERE APPEARS TO BE SOME VOLUME LOSS IN THE LIVER SUGGESTING THE POSSIBILITY OF CIRRHOSIS. 4. LARGE LIKELY BENIGN CALCIFICATION WITHIN THE LIVER ACCOUNTING FOR THE PRIOR ULTRASOUND ABNORMALITY. 5. SPLENOMEGALY, ENLARGEMENT OF THE PORTAL VEIN AND VARICES SUGGESTIVE OF PORTAL HYPERTENSION. 6. CHOLELITHIASIS. 7. SMALL AMOUNT OF ASCITES. 8. LEFT INGUINAL HERNIA CONTAINING NONDISTENDED SMALL BOWEL. 9. SMALL CYSTIC LESION WITHIN THE PANCREATIC BODY NONSPECIFIC ALTHOUGH THE IMAGING CHARACTERISTICS WOULD FAVOR A INTRADUCTAL PAPILLARY MUCINOUS NEOPLASM. RECOMMEND A FOLLOW-UP CT OF THE ABDOMEN WITH CONTRAST IN ONE YEAR'S TIME. 10. RIGHT FEMORAL NECK INTERTROCHANTERIC FRACTURE STATUS POST OPERATIVE REDUCTION AND INTERNAL FIXATION. THE FRACTURE FRAGMENTS APPEAR UNUNITED.
[2016-09-12] MEDS: Omeprazole CAP* 20 MG PO SCH (15:30)
[2016-09-12] MEDS: Lisinopril TAB* 10 MG PO SCH (15:30)
[2016-09-12] MEDS: Metoprolol Succinate XL TAB* 25 MG PO SCH (15:30)
--- NOTE | 2016-09-12 16:29 | PN ---
Subjective Date of Service: 09/12/16 Interval History: seen multiple times throughout day epistaxis this AM resolved with 10 mins of direct pressure no abdominal pain, N/V Objective Active Medications: Acetaminophen (Tylenol Tab*) 650 mg PO Q6H PRN PRN Reason: FEVER/PAIN Last Admin: 09/11/16 22:15 Dose: 650 mg Aspirin (Aspirin Low Dose Tab*) 81 mg PO QAM [facility] Last Admin: 09/12/16 10:04 Dose: Not Given Docusate Sodium (Colace Cap*) 200 mg PO BID [facility] Last Admin: 09/12/16 10:04 Dose: Not Given Folic Acid (Folvite Tab*) 1 mg PO DAILY [facility] Last Admin: 09/12/16 10:04 Dose: Not Given Guaifenesin (Mucinex*) 1,200 mg PO BID [facility] Last Admin: 09/12/16 10:04 Dose: Not Given Sodium Chloride (Ns 0.9% 1000 Ml*) 1,000 mls @ 85 mls/hr IV PER RATE [facility] Last Admin: 09/12/16 04:10 Dose: 85 mls/hr Metronidazole/Sodium Chloride (Flagyl 500 Mg Ivpb*) 500 mg in 100 mls @ 100 mls /hr IVPB Q8H [facility] Last Admin: 09/12/16 13:25 Dose: 100 mls/hr Cefepime HCl 2 gm/ Sodium (Chloride) 50 mls @ 100 mls/hr IVPB Q12H [facility] Last Admin: 09/12/16 09:16 Dose: 100 mls/hr Lisinopril (Prinivil Tab*) 10 mg PO DAILY [facility] Last Admin: 09/12/16 15:30 Dose: Not Given Melatonin (Melatonin (Nf)) 3 mg PO BEDTIME PRN; Protocol PRN Reason: Sleep Metoprolol Succinate (Toprol Xl Tab*) 25 mg PO DAILY [facility] Last Admin: 09/12/16 15:30 Dose: Not Given Omeprazole (Prilosec Cap*) 20 mg PO DAILY [facility] Last Admin: 09/12/16 15:30 Dose: Not Given Ondansetron HCl (Zofran Inj*) 4 mg IV Q6H PRN PRN Reason: NAUSEA Tramadol HCl (Ultram*) 50 mg PO Q6H PRN PRN Reason: PAIN Vital Signs 09/11/16 09/11/16 09/11/16 18:07 20:00 20:08 Temperature 99.5 F 100.2 F Pulse Rate 79 Respiratory 18 18 Rate Blood Pressure 129/49 (mmHg) O2 Sat by Pulse 97 Oximetry 09/11/16 09/11/16 09/12/16 21:44 23:27 00:00 Temperature 100.0 F 99.2 F Pulse Rate 74 Respiratory 16 Rate Blood Pressure 124/45 (mmHg) O2 Sat by Pulse 99 97 Oximetry 09/12/16 09/12/16 09/12/16 03:48 07:55 08:57 Temperature 99.3 F 99.3 F Pulse Rate 79 81 Respiratory 16 16 Rate Blood Pressure 123/46 136/53 (mmHg) O2 Sat by Pulse 98 97 97 Oximetry 09/12/16 11:04 Temperature 99.5 F Pulse Rate 86 Respiratory 20 Rate Blood Pressure 140/53 (mmHg) O2 Sat by Pulse 98 Oximetry Oxygen Devices in Use Now: None Appearance: jaundiced, NAD Eyes: PERRLA Ears/Nose/Mouth/Throat: NL Teeth, Lips, Gums, Clear Oropharnyx Neck: NL Appearance and Movements; NL JVP, Trachea Midline Respiratory: Symmetrical Chest Expansion and Respiratory Effort, Clear to Auscultation Cardiovascular: RRR Abdominal: NL Sounds; No Tenderness; No Distention, No Hepatosplenomegaly Lymphatic: No Cervical Adenopathy Extremities: No Edema Neurological: Alert and Oriented x 3 Result Diagrams: 09/12/16 04:47 09/12/16 04:47 Additional Lab and Data: Lab Results 09/10/16 09/10/16 09/10/16 Range/Units 20:41 20:41 20:41 WBC 1.7 L (3.5-10.8) 10^3/ul RBC 2.71 L (4.0-5.4) 10^6/ul Hgb 8.7 L (14.0-18.0) g/dl Hct 26 L (42-52) % MCV 95 H (80-94) fL MCH 32 H (27-31) pg MCHC 34 (31-36) g/dl RDW 16 H (10.5-15) % Plt Count 78 L (150-450) 10^3/ul MPV 8 (7.4-10.4) um3 Neut % (Auto) 70.1 (38-83) % Lymph % (Auto) 5.2 L (25-47) % [place] % (Auto) 23.7 H (1-9) % Eos % (Auto) 0.3 (0-6) % Baso % (Auto) 0.7 (0-2) % Absolute Neuts (auto) 1.2 L (1.5-7.7) 10^3/ul Absolute Lymphs (auto) 0.1 L (1.0-4.8) 10^3/ul Absolute Monos (auto) 0.4 (0-0.8) 10^3/ul Absolute Eos (auto) 0 (0-0.6) 10^3/ul Absolute Basos (auto) 0 (0-0.2) 10^3/ul Absolute Nucleated RBC 0.01 10^3/ul Nucleated RBC % 0.6 Hem Pathologist Commnt Pending INR (Anticoag Therapy) 1.21 H (0.89-1.11) APTT 24.5 L (26.0-36.3) seconds Sodium 135 (133-145) mmol/L Potassium 3.6 (3.5-5.0) mmol/L Chloride 103 (101-111) mmol/L Carbon Dioxide 23 (22-32) mmol/L Anion Gap 9 (2-11) mmol/L BUN 28 H (6-24) mg/dL Creatinine 1.40 H (0.67-1.17) mg/dL Est GFR ( Amer) 62.1 (>60) Est GFR (Non-Af Amer) 48.3 (>60) BUN/Creatinine Ratio 20.0 (8-20) Glucose 136 H (70-100) mg/dL Lactic Acid (0.5-2.0) mmol/L Calcium 8.9 (8.6-10.3) mg/dL Magnesium 1.5 L (1.9-2.7) mg/dL Total Bilirubin 13.30 H* (0.2-1.0) mg/dL AST 315 H (13-39) U/L ALT 297 H (7-52) U/L Alkaline Phosphatase 254 H (34-104) U/L Total Creatine Kinase 40 (10-223) U/L Troponin I 0.02 (<0.04) ng/mL C-Reactive Protein 10.61 H (< 5.00) mg/L B-Natriuretic Peptide ( - 100) pg/mL Total Protein 5.5 L (6.4-8.9) g/dL Albumin 3.9 (3.2-5.2) g/dL Globulin 1.6 L (2-4) g/dL Albumin/Globulin Ratio 2.4 (1-3) Amylase 30 (29-103) U/L Lipase 37 (11.0-82.0) U/L 09/10/16 09/10/16 Range/Units 20:41 20:41 WBC (3.5-10.8) 10^3/ul RBC (4.0-5.4) 10^6/ul Hgb (14.0-18.0) g/dl Hct (42-52) % MCV (80-94) fL MCH (27-31) pg MCHC (31-36) g/dl RDW (10.5-15) % Plt Count (150-450) 10^3/ul MPV (7.4-10.4) um3 Neut % (Auto) (38-83) % Lymph % (Auto) (25-47) % [place] % (Auto) (1-9) % Eos % (Auto) (0-6) % Baso % (Auto) (0-2) % Absolute Neuts (auto) (1.5-7.7) 10^3/ul Absolute Lymphs (auto) (1.0-4.8) 10^3/ul Absolute Monos (auto) (0-0.8) 10^3/ul Absolute Eos (auto) (0-0.6) 10^3/ul Absolute Basos (auto) (0-0.2) 10^3/ul Absolute Nucleated RBC 10^3/ul Nucleated RBC % Hem Pathologist Commnt INR (Anticoag Therapy) (0.89-1.11) APTT (26.0-36.3) seconds Sodium (133-145) mmol/L Potassium (3.5-5.0) mmol/L Chloride (101-111) mmol/L Carbon Dioxide (22-32) mmol/L Anion Gap (2-11) mmol/L BUN (6-24) mg/dL Creatinine (0.67-1.17) mg/dL Est GFR ( Amer) (>60) Est GFR (Non-Af Amer) (>60) BUN/Creatinine Ratio (8-20) Glucose (70-100) mg/dL Lactic Acid 2.1 H* (0.5-2.0) mmol/L Calcium (8.6-10.3) mg/dL Magnesium (1.9-2.7) mg/dL Total Bilirubin (0.2-1.0) mg/dL AST (13-39) U/L ALT (7-52) U/L Alkaline Phosphatase (34-104) U/L Total Creatine Kinase (10-223) U/L Troponin I (<0.04) ng/mL C-Reactive Protein (< 5.00) mg/L B-Natriuretic Peptide 110 H ( - 100) pg/mL Total Protein (6.4-8.9) g/dL Albumin (3.2-5.2) g/dL Globulin (2-4) g/dL Albumin/Globulin Ratio (1-3) Amylase (29-103) U/L Lipase (11.0-82.0) U/L Microbiology and Other Data: Microbiology 09/11/16 12:08 Aerobic Blood Culture - Preliminary Blood Venous No Growth Day 1 Anaerobic Blood Culture - Preliminary No Growth Day 1 09/11/16 06:27 Aerobic Blood Culture - Preliminary Blood Venous No Growth Day 1 Anaerobic Blood Culture - Preliminary No Growth Day 1 Assess/Plan/Problems-Billing Assessment: 86 yo M h/o 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 c/w cefepime and flagyl, gentle fluids trend LFTs (2) Bacteremia Comment: Enterobacter c/w cefepime and flagyl biliary system as source (3) Hyperbilirubinemia Comment: see above. obstructing CBD stone (4) Cold agglutinin disease Comment: stable (5) Hypertension Comment: lisinopril (6) Liver mass Comment: 3cm seen and calcified on CT (7) Pancytopenia Comment: reviewed outpatient records (online) WBC worsening now with neutropenia suspected in setting of infection hold heparins in setting of thrombocytopenia and epistaxis 09/12 (8) DVT prophylaxis Comment: contraindicated in setting of thrombocytopenia and epistaxis
[2016-09-12] MEDS: Acetaminophen TAB* 325 MG PO PRN (18:44)
[2016-09-13] MEDS: metroNIDAZOLE IV 500 MG/100ML* 500 MG/100 ML BAG IVPB SCH ×2 (04:59→12:15)
--- NOTE | 2016-09-13 05:37 | DS ---
DISCHARGE/TRANSFER SUMMARY: DATE OF ADMISSION: 09/10/16 DATE OF TRANSFER ACCEPTANCE: 09/12/16 Date of actual transfer is to be determined. DISPOSITION: Transfer to [facility]. REASONS FOR TRANSFER: Cholangitis with need for ERCP. HOME MEDICATIONS: 1. Glucosamine chondroitin one tablet daily. 2. Acetaminophen as needed. 3. Aspirin 81 mg daily. 4. Metoprolol succinate 25 mg daily. 5. Lisinopril 10 mg daily. 6. Folic acid 800 mcg daily. 7. Omeprazole 20 mg daily. ACTIVE MEDICATIONS: Currently: 1. Acetaminophen q.6h. as needed for fever. 2. Aspirin 81 mg daily. 3. Cefepime 2 g twice daily. 4. Docusate 200 mg twice daily. 5. Folic acid 1 mg daily. 6. Guaifenesin 1200 mg twice daily. 7. Lisinopril 10 mg daily. 8. Melatonin 3 mg at bedtime. 9. Metoprolol succinate 25 mg daily. 10. Flagyl 500 mg 3 times daily. 11. Omeprazole 20 mg daily. 12. Ondansetron 4 mg IV as needed for nausea. 13. Tramadol 50 mg every 6 hours as needed for pain. PERTINENT IMAGING STUDIES: Gallbladder ultrasound from 09/11/16, impression: Chololithiasis and biliary sludge. A 2 cm lesion in the right hepatic lobe. Common bile duct is 0.[address] of the abdomen and pelvis with and without contrast on 09/12/16. Impression : Small bilateral pleural effusions. Bilateral calcified pleural plaques suggesting the possibility of prior asbestos exposure. There appears to be some volume loss in the liver, suggests the possibility of cirrhosis. Large likely benign calcification within the liver accounting for the prior ultrasound abnormality. Splenomegaly, enlargement of the portal vein and varices suggestive of portal hypertension. Cholelithiasis. Small amount of ascites. Left inguinal hernia containing nondistended small bowel. Small cystic lesion within the pancreatic body, nonspecific although the imaging characteristics would be for intraductal papilloma, mucinous neoplasm. Recommend followup in a year. Right femoral neck intertrochanteric fracture, status post operative reduction and internal fixation. There is a 3 mm calculus present in the distal common bile duct at the level of the pancreatic head. PERTINENT LABORATORY DATA: BUN and creatinine 19 and 1.28, white blood cell count 1.1, absolute neutrophil count 800, hemoglobin 7.2, hematocrit 21, platelets 61. Bilirubin 26.7, direct bilirubin 21, indirect 5.6. AST 84, ALT 155, alkaline phosphatase 210, lactic dehydrogenase 192. Lipase 37. 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 The pain had subsided. There was some thought that the patient had passed a biliary stone. This was supported by an ultrasound, but no evidence for common bile duct dilatation and no evidence for stone. CAT scan with and without contrast did indicate a small stone at the distal common bile duct at the level of the pancreatic head. Additionally, the patient's blood was growing Enterobacter cloacae resistant to cefazolin and amoxicillin, otherwise pansensitive to antibiotics testing including cefepime, ceftriaxone, ciprofloxacin, gentamicin, Levaquin, meropenem , tetracycline, and Bactrim. The patient was started on ceftriaxone broadened to cefepime and Flagyl when his LFTs were noted to be increasing. His vital signs have remained stable. Systolic blood pressures ranging in the 120s to 140s with diastolics in the 40s to 70s. Heart rates ranging in the 70s to 80s in the last 24 hours; however, still with low-grade fevers at 100.2 on the day of this dictation. Patient's hospital stay was complicated by epistaxis, which resolved with 10 minutes of direct pressure. Subcutaneous heparin was discontinued after epistaxis developed. In the setting of bacteremia with Enterobacter and was thought to be an obstructing common bile duct stone, the patient was suspected to have cholangitis. This author had discussions with [facility], [facility], and [facility]. Of all three, only [facility] has the capability to perform an ERCP today. [facility] has no bed availability and no ERCP. [facility] deferred transfer to a higher level of care given the patient 's past medical history including B-cell lymphoma. Therefore, a decision to transfer to [facility] was made. Discussion with transfer center, the medical support assistant, Dr. Fuentes and her hospitalist. The patient was accepted for admission. However, it is currently pending for a bed to become available. Patient has been maintained on cefepime and Flagyl, pending transfer acceptance to [facility]. Please do not hesitate to call with additional questions. Thank you for assisting in the care of this patient. [id number]/[facility] #: [id number] CHAR
[2016-09-13 07:35] LABS: BUN/Creatinine Ratio 13.3 (8-20); Calcium 8.3 mg/dL (8.6-10.3); EGFR African American 74.2 (>60); EGFR Non-African American 57.7 (>60); Globulin 1.5 g/dL (2-4); Indirect Bilirubin 4.9 mg/dL (0.3-1.0); Potassium 3.5 mmol/L (3.5-5.0); Total Bilirubin 11.9 mg/dL (0.2-1.0); Total Protein 4.5 g/dL (6.4-8.9)
[2016-09-13 08:07] LABS: Hematocrit 21 % (42-52); Hemoglobin 6.9 g/dl (14.0-18.0); Mean Corpuscular HGB Conc 33 g/dl (31-36); Mean Corpuscular Hemoglobin 32 pg (27-31); Mean Corpuscular Volume 95 fL (80-94); Mean Platelet Volume 9 um3 (7.4-10.4); Red Cell Distribution Width 15 % (10.5-15)
[2016-09-13 08:08] LABS: Add Diff/Slide Review? Slide Review Added; Comments Flag Yes
[2016-09-13] MEDS: Cefepime(*) 2 GM in NS 0.9% 50 ML* 50 ML IVPB SCH ×2 (08:30→20:16)
[2016-09-13] MEDS: Omeprazole CAP* 20 MG PO SCH (08:33)
[2016-09-13] MEDS: Metoprolol Succinate XL TAB* 25 MG PO SCH (08:34)
[2016-09-13] MEDS: guaiFENesin ER TAB 600 MG PO SCH ×2 (08:34→20:16)
[2016-09-13] MEDS: Docusate CAP* 100 MG PO SCH ×2 (08:34→20:21)
[2016-09-13] MEDS: Aspirin Low Dose CHEW TAB* 81 MG PO SCH (08:34)
[2016-09-13] MEDS: Folic Acid TAB* 1 MG PO SCH (08:34)
[2016-09-13] MEDS: Lisinopril TAB* 10 MG PO SCH (08:35)
--- NOTE | 2016-09-13 16:20 | RAD ---
INDICATION: Cholangitis. COMPARISON: Comparison is made with a prior CT of the abdomen and pelvis from September 12, 2016. TECHNIQUE: Axial and coronal heavily T2-weighted images of the abdomen were obtained. Images were reconstructed in the maximum intensity projection format. FINDINGS: The liver and spleen are markedly decreased in signal intensity most consistent with hemachromatosis. The spleen is markedly enlarged as previously noted spanning up to 24 cm in craniocaudad dimension. There are several small gallstones present. In addition there appear to be 2 small calculi in the distal common bile duct. No intra or extra hepatic ductal distention is noted. The common bile duct measures a maximum of 6 mm in diameter. There is a small cystic 1 cm lesion in the body of the pancreas as previously described. The kidneys and adrenal glands appear normal in size. There are several bilateral renal cysts present. IMPRESSION: 1. CHOLELITHIASIS AND CHOLEDOCHOLITHIASIS. 2. HEMACHROMATOSIS AND MARKED SPLENOMEGALY. 3. 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 RECOMMEND A FOLLOW-UP CT OF THE ABDOMEN WITH CONTRAST IN ONE YEAR'S TIME.
--- NOTE | 2016-09-13 17:10 | PN ---
Subjective Date of Service: 09/13/16 Interval History: Feels weak but overall not much different than yesterday. His notes he is less yellow. Appetite is OK although did feel a little nauseous before breakfast. Objective Active Medications: Acetaminophen (Tylenol Tab*) 650 mg PO Q6H PRN PRN Reason: FEVER/PAIN Last Admin: 09/12/16 18:44 Dose: 650 mg Aspirin (Aspirin Low Dose Tab*) 81 mg PO QAM [facility] Last Admin: 09/13/16 08:34 Dose: 81 mg Docusate Sodium (Colace Cap*) 200 mg PO BID [facility] Last Admin: 09/13/16 08:34 Dose: 200 mg Folic Acid (Folvite Tab*) 1 mg PO DAILY [facility] Last Admin: 09/13/16 08:34 Dose: 1 mg Guaifenesin (Mucinex*) 1,200 mg PO BID [facility] Last Admin: 09/13/16 08:34 Dose: 1,200 mg Sodium Chloride (Ns 0.9% 1000 Ml*) 1,000 mls @ 85 mls/hr IV PER RATE [facility] Last Admin: 09/12/16 23:45 Dose: 85 mls/hr Cefepime HCl 2 gm/ Sodium (Chloride) 50 mls @ 100 mls/hr IVPB Q12H [facility] Last Admin: 09/13/16 08:30 Dose: 100 mls/hr Lisinopril (Prinivil Tab*) 10 mg PO DAILY [facility] Last Admin: 09/13/16 08:35 Dose: 10 mg Melatonin (Melatonin (Nf)) 3 mg PO BEDTIME PRN; Protocol PRN Reason: Sleep Metoprolol Succinate (Toprol Xl Tab*) 25 mg PO DAILY [facility] Last Admin: 09/13/16 08:34 Dose: 25 mg Omeprazole (Prilosec Cap*) 20 mg PO DAILY [facility] Last Admin: 09/13/16 08:33 Dose: 20 mg Ondansetron HCl (Zofran Inj*) 4 mg IV Q6H PRN PRN Reason: NAUSEA Tramadol HCl (Ultram*) 50 mg PO Q6H PRN PRN Reason: PAIN Vital Signs 09/12/16 09/12/16 09/12/16 18:37 20:00 23:39 Temperature 101.4 F 98.8 F Pulse Rate 85 Respiratory 16 18 Rate Blood Pressure 135/57 (mmHg) O2 Sat by Pulse 98 Oximetry 09/13/16 09/13/16 09/13/16 00:00 03:51 05:25 Temperature 99.1 F 99.7 F Pulse Rate 83 Respiratory 16 Rate Blood Pressure 144/64 (mmHg) O2 Sat by Pulse 98 95 Oximetry 09/13/16 09/13/16 09/13/16 07:48 08:44 11:32 Temperature 98.8 F 98.7 F Pulse Rate 74 84 Respiratory 16 16 Rate Blood Pressure 150/68 142/58 (mmHg) O2 Sat by Pulse 100 95 100 Oximetry 09/13/16 15:14 Temperature 98.5 F Pulse Rate 78 Respiratory 17 Rate Blood Pressure 147/59 (mmHg) O2 Sat by Pulse 99 Oximetry Oxygen Devices in Use Now: None Appearance: sitting up in bed, NAD Eyes: PERRLA, - - +scleral icterus Ears/Nose/Mouth/Throat: Clear Oropharnyx, Mucous Membranes Moist Neck: NL Appearance and Movements; NL JVP Respiratory: Symmetrical Chest Expansion and Respiratory Effort, Clear to Auscultation Cardiovascular: NL Sounds; No Murmurs; No JVD, RRR Abdominal: NL Sounds; No Tenderness; No Distention, No Hepatosplenomegaly Lymphatic: No Cervical Adenopathy, No Auricular Adenopathy Extremities: No Edema Skin: No Rash or Ulcers Neurological: Alert and Oriented x 3 Result Diagrams: 09/13/16 06:47 09/13/16 06:47 Additional Lab and Data: Lab Results 09/10/16 09/10/16 09/10/16 Range/Units 20:41 20:41 20:41 WBC 1.7 L (3.5-10.8) 10^3/ul RBC 2.71 L (4.0-5.4) 10^6/ul Hgb 8.7 L (14.0-18.0) g/dl Hct 26 L (42-52) % MCV 95 H (80-94) fL MCH 32 H (27-31) pg MCHC 34 (31-36) g/dl RDW 16 H (10.5-15) % Plt Count 78 L (150-450) 10^3/ul MPV 8 (7.4-10.4) um3 Neut % (Auto) 70.1 (38-83) % Lymph % (Auto) 5.2 L (25-47) % [place] % (Auto) 23.7 H (1-9) % Eos % (Auto) 0.3 (0-6) % Baso % (Auto) 0.7 (0-2) % Absolute Neuts (auto) 1.2 L (1.5-7.7) 10^3/ul Absolute Lymphs (auto) 0.1 L (1.0-4.8) 10^3/ul Absolute Monos (auto) 0.4 (0-0.8) 10^3/ul Absolute Eos (auto) 0 (0-0.6) 10^3/ul Absolute Basos (auto) 0 (0-0.2) 10^3/ul Absolute Nucleated RBC 0.01 10^3/ul Nucleated RBC % 0.6 Hem Pathologist Commnt Pending INR (Anticoag Therapy) 1.21 H (0.89-1.11) APTT 24.5 L (26.0-36.3) seconds Sodium 135 (133-145) mmol/L Potassium 3.6 (3.5-5.0) mmol/L Chloride 103 (101-111) mmol/L Carbon Dioxide 23 (22-32) mmol/L Anion Gap 9 (2-11) mmol/L BUN 28 H (6-24) mg/dL Creatinine 1.40 H (0.67-1.17) mg/dL Est GFR ( Amer) 62.1 (>60) Est GFR (Non-Af Amer) 48.3 (>60) BUN/Creatinine Ratio 20.0 (8-20) Glucose 136 H (70-100) mg/dL Lactic Acid (0.5-2.0) mmol/L Calcium 8.9 (8.6-10.3) mg/dL Magnesium 1.5 L (1.9-2.7) mg/dL Total Bilirubin 13.30 H* (0.2-1.0) mg/dL AST 315 H (13-39) U/L ALT 297 H (7-52) U/L Alkaline Phosphatase 254 H (34-104) U/L Total Creatine Kinase 40 (10-223) U/L Troponin I 0.02 (<0.04) ng/mL C-Reactive Protein 10.61 H (< 5.00) mg/L B-Natriuretic Peptide ( - 100) pg/mL Total Protein 5.5 L (6.4-8.9) g/dL Albumin 3.9 (3.2-5.2) g/dL Globulin 1.6 L (2-4) g/dL Albumin/Globulin Ratio 2.4 (1-3) Amylase 30 (29-103) U/L Lipase 37 (11.0-82.0) U/L 09/10/16 09/10/16 Range/Units 20:41 20:41 WBC (3.5-10.8) 10^3/ul RBC (4.0-5.4) 10^6/ul Hgb (14.0-18.0) g/dl Hct (42-52) % MCV (80-94) fL MCH (27-31) pg MCHC (31-36) g/dl RDW (10.5-15) % Plt Count (150-450) 10^3/ul MPV (7.4-10.4) um3 Neut % (Auto) (38-83) % Lymph % (Auto) (25-47) % [place] % (Auto) (1-9) % Eos % (Auto) (0-6) % Baso % (Auto) (0-2) % Absolute Neuts (auto) (1.5-7.7) 10^3/ul Absolute Lymphs (auto) (1.0-4.8) 10^3/ul Absolute Monos (auto) (0-0.8) 10^3/ul Absolute Eos (auto) (0-0.6) 10^3/ul Absolute Basos (auto) (0-0.2) 10^3/ul Absolute Nucleated RBC 10^3/ul Nucleated RBC % Hem Pathologist Commnt INR (Anticoag Therapy) (0.89-1.11) APTT (26.0-36.3) seconds Sodium (133-145) mmol/L Potassium (3.5-5.0) mmol/L Chloride (101-111) mmol/L Carbon Dioxide (22-32) mmol/L Anion Gap (2-11) mmol/L BUN (6-24) mg/dL Creatinine (0.67-1.17) mg/dL Est GFR ( Amer) (>60) Est GFR (Non-Af Amer) (>60) BUN/Creatinine Ratio (8-20) Glucose (70-100) mg/dL Lactic Acid 2.1 H* (0.5-2.0) mmol/L Calcium (8.6-10.3) mg/dL Magnesium (1.9-2.7) mg/dL Total Bilirubin (0.2-1.0) mg/dL AST (13-39) U/L ALT (7-52) U/L Alkaline Phosphatase (34-104) U/L Total Creatine Kinase (10-223) U/L Troponin I (<0.04) ng/mL C-Reactive Protein (< 5.00) mg/L B-Natriuretic Peptide 110 H ( - 100) pg/mL Total Protein (6.4-8.9) g/dL Albumin (3.2-5.2) g/dL Globulin (2-4) g/dL Albumin/Globulin Ratio (1-3) Amylase (29-103) U/L Lipase (11.0-82.0) U/L Microbiology and Other Data: Microbiology 09/11/16 12:08 Aerobic Blood Culture - Preliminary Blood Venous No Growth Day 1 Anaerobic Blood Culture - Preliminary No Growth Day 1 09/11/16 06:27 Aerobic Blood Culture - Preliminary Blood Venous No Growth Day 1 Anaerobic Blood Culture - Preliminary No Growth Day 1 Assess/Plan/Problems-Billing Assessment: 86 yo M 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 [facility] declined transfer. MRCP indicates stones in distal CBD despite improving hyperbilirubinemia c/w cefepime and d/c flagyl 09/13 d/w GI to make aware of pt should he not be transferred again due to lack of beds. trend LFTs (2) Bacteremia Comment: Enterobacter c/w cefepime biliary system as source (3) Hyperbilirubinemia Comment: see above. CBD stones remain (4) Cold agglutinin disease Comment: stable (5) Hypertension Comment: lisinopril (6) Liver mass Comment: 3cm seen and calcified on CT (7) Pancytopenia Comment: reviewed outpatient records (online) WBC worsening now with neutropenia suspected in setting of infection hold heparins in setting of thrombocytopenia and epistaxis 09/12 (8) Anemia Comment: transfusion reaction within the last 2 months after PRBC in which he developed hemolysis hold PRBC today and recheck tomorrow to assess for need of blood (9) B-cell lymphoma Comment: rituxan [id number] and due today hold rituxan but consult hematology in setting of neutropenia and BCL. ?neupogen (10) DVT prophylaxis Comment: contraindicated in setting of thrombocytopenia and epistaxis
[2016-09-14 07:54] LABS: Albumin 3.3 g/dL (3.2-5.2); BUN/Creatinine Ratio 15.1 (8-20); Calcium 8.3 mg/dL (8.6-10.3); EGFR African American 74.9 (>60); EGFR Non-African American 58.2 (>60); Globulin 1.5 g/dL (2-4); Total Bilirubin 7.2 mg/dL (0.2-1.0); Total Protein 4.8 g/dL (6.4-8.9)
[2016-09-14 08:31] LABS: Direct Bilirubin 3.8 mg/dL (0.03-0.18); Indirect Bilirubin 3.4 mg/dL (0.3-1.0); Potassium 4.3 mmol/L (3.5-5.0)
[2016-09-14] MEDS: NS 0.9% 1000 ML* 1,000 ML IV SCH ×2 (08:42→21:41)
[2016-09-14] MEDS: Cefepime(*) 2 GM in NS 0.9% 50 ML* 50 ML IVPB SCH ×2 (08:43→21:32)
[2016-09-14 09:13] LABS: Red Cell Distribution Width 15 % (10.5-15)
[2016-09-14 09:22] LABS: Hematocrit 20 % (42-52); Hemoglobin 7.4 g/dl (14.0-18.0); Mean Corpuscular HGB Conc 37 g/dl (31-36); Mean Corpuscular Hemoglobin 41 pg (27-31); Mean Corpuscular Volume 111 fL (80-94); Mean Platelet Volume 8 um3 (7.4-10.4); Red Blood Count 1.83 10^6/ul (4.0-5.4); White Blood Count 1.2 10^3/ul (3.5-10.8)
[2016-09-14 09:24] LABS: Add Diff/Slide Review? Slide Review Added; Comments Flag Yes
[2016-09-14] MEDS: Docusate CAP* 100 MG PO SCH ×2 (09:25→21:32)
[2016-09-14] MEDS: guaiFENesin ER TAB 600 MG PO SCH ×2 (09:25→21:32)
[2016-09-14] MEDS: Folic Acid TAB* 1 MG PO SCH (09:25)
[2016-09-14] MEDS: Omeprazole CAP* 20 MG PO SCH (09:25)
[2016-09-14] MEDS: Aspirin Low Dose CHEW TAB* 81 MG PO SCH (15:47)
[2016-09-14] MEDS: Metoprolol Succinate XL TAB* 25 MG PO SCH (16:40)
[2016-09-14] MEDS: Lisinopril TAB* 10 MG PO SCH (16:40)
--- NOTE | 2016-09-14 17:00 | PN ---
Subjective Date of Service: 09/14/16 Interval History: Feels stronger. Inquiring about hospital discharge. No abdominal pain. No SOB, no N/V, LH Objective Active Medications: Acetaminophen (Tylenol Tab*) 650 mg PO Q6H PRN PRN Reason: FEVER/PAIN Last Admin: 09/12/16 18:44 Dose: 650 mg Aspirin (Aspirin Low Dose Tab*) 81 mg PO QAM [facility] Last Admin: 09/14/16 15:47 Dose: Not Given Docusate Sodium (Colace Cap*) 200 mg PO BID [facility] Last Admin: 09/14/16 09:25 Dose: Not Given Folic Acid (Folvite Tab*) 1 mg PO DAILY [facility] Last Admin: 09/14/16 09:25 Dose: Not Given Guaifenesin (Mucinex*) 1,200 mg PO BID [facility] Last Admin: 09/14/16 09:25 Dose: Not Given Sodium Chloride (Ns 0.9% 1000 Ml*) 1,000 mls @ 85 mls/hr IV PER RATE [facility] Last Admin: 09/14/16 08:42 Dose: 85 mls/hr Cefepime HCl 2 gm/ Sodium (Chloride) 50 mls @ 100 mls/hr IVPB Q12H [facility] Last Admin: 09/14/16 08:43 Dose: 100 mls/hr Lisinopril (Prinivil Tab*) 10 mg PO DAILY [facility] Last Admin: 09/14/16 16:40 Dose: 10 mg Melatonin (Melatonin (Nf)) 3 mg PO BEDTIME PRN; Protocol PRN Reason: Sleep Metoprolol Succinate (Toprol Xl Tab*) 25 mg PO DAILY [facility] Last Admin: 09/14/16 16:40 Dose: 25 mg Omeprazole (Prilosec Cap*) 20 mg PO DAILY [facility] Last Admin: 09/14/16 09:25 Dose: Not Given Ondansetron HCl (Zofran Inj*) 4 mg IV Q6H PRN PRN Reason: NAUSEA Tramadol HCl (Ultram*) 50 mg PO Q6H PRN PRN Reason: PAIN Vital Signs 09/13/16 09/13/16 09/13/16 19:37 20:00 23:20 Temperature 98.6 F 99.9 F Pulse Rate 74 75 Respiratory 17 18 16 Rate Blood Pressure 124/40 127/59 (mmHg) O2 Sat by Pulse 99 100 Oximetry 09/14/16 09/14/16 09/14/16 03:06 07:57 09:21 Temperature 99.3 F 98.3 F Pulse Rate 65 68 Respiratory 16 16 Rate Blood Pressure 137/54 143/61 (mmHg) O2 Sat by Pulse 97 98 98 Oximetry 09/14/16 15:24 Temperature 98.5 F Pulse Rate 68 Respiratory 16 Rate Blood Pressure 136/58 (mmHg) O2 Sat by Pulse 100 Oximetry Oxygen Devices in Use Now: None Appearance: less jaundiced, NAD Eyes: PERRLA, - - jaundiced sclera Neck: NL Appearance and Movements; NL JVP, Trachea Midline Respiratory: Symmetrical Chest Expansion and Respiratory Effort, - - rales in mid right lung posteriorly Cardiovascular: NL Sounds; No Murmurs; No JVD, RRR Abdominal: - - soft, mild tenderness, ND, no rebound/guarding, +bs Lymphatic: No Cervical Adenopathy Extremities: No Edema Skin: - - jaundiced Neurological: Alert and Oriented x 3 Result Diagrams: 09/14/16 08:38 09/14/16 06:26 Additional Lab and Data: Lab Results 09/10/16 09/10/16 09/10/16 Range/Units 20:41 20:41 20:41 WBC 1.7 L (3.5-10.8) 10^3/ul RBC 2.71 L (4.0-5.4) 10^6/ul Hgb 8.7 L (14.0-18.0) g/dl Hct 26 L (42-52) % MCV 95 H (80-94) fL MCH 32 H (27-31) pg MCHC 34 (31-36) g/dl RDW 16 H (10.5-15) % Plt Count 78 L (150-450) 10^3/ul MPV 8 (7.4-10.4) um3 Neut % (Auto) 70.1 (38-83) % Lymph % (Auto) 5.2 L (25-47) % [place] % (Auto) 23.7 H (1-9) % Eos % (Auto) 0.3 (0-6) % Baso % (Auto) 0.7 (0-2) % Absolute Neuts (auto) 1.2 L (1.5-7.7) 10^3/ul Absolute Lymphs (auto) 0.1 L (1.0-4.8) 10^3/ul Absolute Monos (auto) 0.4 (0-0.8) 10^3/ul Absolute Eos (auto) 0 (0-0.6) 10^3/ul Absolute Basos (auto) 0 (0-0.2) 10^3/ul Absolute Nucleated RBC 0.01 10^3/ul Nucleated RBC % 0.6 Hem Pathologist Commnt Pending INR (Anticoag Therapy) 1.21 H (0.89-1.11) APTT 24.5 L (26.0-36.3) seconds Sodium 135 (133-145) mmol/L Potassium 3.6 (3.5-5.0) mmol/L Chloride 103 (101-111) mmol/L Carbon Dioxide 23 (22-32) mmol/L Anion Gap 9 (2-11) mmol/L BUN 28 H (6-24) mg/dL Creatinine 1.40 H (0.67-1.17) mg/dL Est GFR ( Amer) 62.1 (>60) Est GFR (Non-Af Amer) 48.3 (>60) BUN/Creatinine Ratio 20.0 (8-20) Glucose 136 H (70-100) mg/dL Lactic Acid (0.5-2.0) mmol/L Calcium 8.9 (8.6-10.3) mg/dL Magnesium 1.5 L (1.9-2.7) mg/dL Total Bilirubin 13.30 H* (0.2-1.0) mg/dL AST 315 H (13-39) U/L ALT 297 H (7-52) U/L Alkaline Phosphatase 254 H (34-104) U/L Total Creatine Kinase 40 (10-223) U/L Troponin I 0.02 (<0.04) ng/mL C-Reactive Protein 10.61 H (< 5.00) mg/L B-Natriuretic Peptide ( - 100) pg/mL Total Protein 5.5 L (6.4-8.9) g/dL Albumin 3.9 (3.2-5.2) g/dL Globulin 1.6 L (2-4) g/dL Albumin/Globulin Ratio 2.4 (1-3) Amylase 30 (29-103) U/L Lipase 37 (11.0-82.0) U/L 09/10/16 09/10/16 Range/Units 20:41 20:41 WBC (3.5-10.8) 10^3/ul RBC (4.0-5.4) 10^6/ul Hgb (14.0-18.0) g/dl Hct (42-52) % MCV (80-94) fL MCH (27-31) pg MCHC (31-36) g/dl RDW (10.5-15) % Plt Count (150-450) 10^3/ul MPV (7.4-10.4) um3 Neut % (Auto) (38-83) % Lymph % (Auto) (25-47) % [place] % (Auto) (1-9) % Eos % (Auto) (0-6) % Baso % (Auto) (0-2) % Absolute Neuts (auto) (1.5-7.7) 10^3/ul Absolute Lymphs (auto) (1.0-4.8) 10^3/ul Absolute Monos (auto) (0-0.8) 10^3/ul Absolute Eos (auto) (0-0.6) 10^3/ul Absolute Basos (auto) (0-0.2) 10^3/ul Absolute Nucleated RBC 10^3/ul Nucleated RBC % Hem Pathologist Commnt INR (Anticoag Therapy) (0.89-1.11) APTT (26.0-36.3) seconds Sodium (133-145) mmol/L Potassium (3.5-5.0) mmol/L Chloride (101-111) mmol/L Carbon Dioxide (22-32) mmol/L Anion Gap (2-11) mmol/L BUN (6-24) mg/dL Creatinine (0.67-1.17) mg/dL Est GFR ( Amer) (>60) Est GFR (Non-Af Amer) (>60) BUN/Creatinine Ratio (8-20) Glucose (70-100) mg/dL Lactic Acid 2.1 H* (0.5-2.0) mmol/L Calcium (8.6-10.3) mg/dL Magnesium (1.9-2.7) mg/dL Total Bilirubin (0.2-1.0) mg/dL AST (13-39) U/L ALT (7-52) U/L Alkaline Phosphatase (34-104) U/L Total Creatine Kinase (10-223) U/L Troponin I (<0.04) ng/mL C-Reactive Protein (< 5.00) mg/L B-Natriuretic Peptide 110 H ( - 100) pg/mL Total Protein (6.4-8.9) g/dL Albumin (3.2-5.2) g/dL Globulin (2-4) g/dL Albumin/Globulin Ratio (1-3) Amylase (29-103) U/L Lipase (11.0-82.0) U/L Microbiology and Other Data: Microbiology 09/11/16 12:08 Aerobic Blood Culture - Preliminary Blood Venous No Growth Day 1 Anaerobic Blood Culture - Preliminary No Growth Day 1 09/11/16 06:27 Aerobic Blood Culture - Preliminary Blood Venous No Growth Day 1 Anaerobic Blood Culture - Preliminary No Growth Day 1 Assess/Plan/Problems-Billing Assessment: 86 yo M 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 [facility] declined transfer. Beds still remain pending MRCP indicates stones in distal CBD despite improving hyperbilirubinemia c/w cefepime and d/c flagyl 09/13 d/w GI - not inclined to do ERCP. Thinks he would benefit from IV to PO abx transition with follow up for ERCP when platelets recover and more stable trend LFTs ID consult to assist in abx management (2) Bacteremia Comment: Enterobacter c/w cefepime biliary system as source (3) Hyperbilirubinemia Comment: see above. CBD stones remain (4) Cold agglutinin disease Comment: stable (5) Hypertension Comment: lisinopril (6) Liver mass Comment: 3cm seen and calcified on CT (7) Pancytopenia Comment: reviewed outpatient records (online) WBC worsening now with neutropenia suspected in setting of infection hold heparins in setting of thrombocytopenia and epistaxis 09/12 hematology c/s (8) Anemia Comment: Improved today no need for transfusion (9) B-cell lymphoma Comment: rituxan [id number] and due 09/13 hold rituxan but consult hematology in setting of neutropenia and BCL. ?neupogen (10) DVT prophylaxis Comment: contraindicated in setting of thrombocytopenia and epistaxis
--- NOTE | 2016-09-15 01:34 | CONS ---
GASTROENTEROLOGY CONSULT: DATE: 09/14/16 CONSULTING PHYSICIAN: Bartolo Larios MD REASON FOR CONSULTATION: Clinical cholangitis in a man with B-cell marginal lymphoma, on chronic Rituxan. 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 He came to the emergency room and was found to have a bilirubin of 13, ALT 297, albumin 3.9, creatinine 1.4 and remarkably white count of 1.7, hemoglobin 8.7, platelets 78. He was admitted on cefepime. Blood cultures have returned negative. He has been feeling much better and his temperature yesterday was maximum of 99.9 and today normal. He says he feels fine today and is hungry. He denies any pain. He had had a similar episode that never progressed any fever on 09/01. Over a year or 2, he has also had some fleeting chest pains and lower abdominal pains. It is not clear what they represent. PAST MEDICAL HISTORY: 1. Marginal B-cell lymphoma - detected February 2015, treated with 6 rounds of chemo to September 2015 and currently on every 4 months Rituxan with a dose scheduled for yesterday that he has missed. 2. Cold agglutinin disease - onset 1982. He says his bilirubin is always 2 to 3 and he has a chronic hemolytic anemia with splenomegaly. 3. Fractured femur - March 2016, spending time in an acute care hospital 3 days, then at rehab, and then he developed urosepsis and was readmitted to the acute care hospital. At some point, he received some transfusions and his recalls that he looked yellow when he came out of the transfusion area. He did not have any chills or myalgias or any traditional transfusion reaction symptoms. Three days later, however, they went to their oncologist/ box spring maker and his bilirubin was 46, which he says is the highest that hospital has ever reported. 4. Chronic splenomegaly. 5. Chronic kidney disease. 6. Chronic reflux - on omeprazole. PAST SURGICAL HISTORY: He denies any history of abdominal surgery. He has been discouraged from getting any further colonoscopies. 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 His granddaughter was reportedly a valedictorian of [employer], though he missed the graduation over the weekend. REVIEW OF SYSTEMS: No history of liver problems or mention of any liver issue until last year or 2. No history of TN, syncope, palpitations, asthma, TB, chronic infections, renal stones. PHYSICAL EXAMINATION: He is jaundiced and sitting in a chair, quite eloquent, giving an excellent history. HEENT exam just shows jaundice. Mucous membranes are normal. He has no adenopathy. Lungs are clear. Heart sounds are regular. The abdomen is symmetric, soft and nontender. Examined in the chair, no organomegaly is felt. He has no edema. He is oriented x3. Cranial nerves normal and moves about the room without aid. LABORATORY DATA: Most recent CBC; white count 1.2, hemoglobin 7.4, MCV 111. Chemistries show bilirubin 7.2, ALT 72, creatinine 1.19, albumin 3.3. IMAGING REVIEW: The common bile is slender at 5 mm and distally there are a couple of small filling defects. There is no bile duct dilation. Gallbladder contains many stones. The liver is prominent, but has a smooth contour. The spleen is quite large. Pancreas is unremarkable. IMPRESSION: This man's cholangitis has responded well to antibiotics. He certainly has a reduced reserve fighting infections one who think with his chronic leukopenia. Nonetheless, he has responded wonderfully and at this time did not appear to have any emergent need for a biliary intervention or gallbladder surgery. Nonetheless, those steps might be required in the future and could be attempted best if he were in his usual environment with clinicians who know him well. In a day, he may be stable enough to embark upon or drive home to [place] over 2 days. The striking elevation of bilirubin apparently is due to his own intrinsic liver capacity stressed by hemolysis and also the cholangitis. Clearly his biliary system is not significantly obstructed at this time. He would be an exceedingly high risk patient for endoscopic retrograde cholangiopancreatography and survivability of any complication and at this time would defer on that. [id number]/[facility] #: [id number] MTDIsi
[2016-09-15 05:46] LABS: Hematocrit 21 % (42-52); Mean Corpuscular HGB Conc 33 g/dl (31-36); Mean Corpuscular Hemoglobin 31 pg (27-31); Mean Corpuscular Volume 94 fL (80-94); Mean Platelet Volume 8 um3 (7.4-10.4); Red Cell Distribution Width 15 % (10.5-15)
[2016-09-15 05:48] LABS: Comments Flag Yes; White Blood Count 1.3 10^3/ul (3.5-10.8)
[2016-09-15 05:49] LABS: Hemoglobin 6.8 g/dl (14.0-18.0)
[2016-09-15 06:27] LABS: Albumin 3.2 g/dL (3.2-5.2); BUN/Creatinine Ratio 17.6 (8-20); Calcium 8.2 mg/dL (8.6-10.3); Direct Bilirubin 2.9 mg/dL (0.03-0.18); EGFR African American 74.9 (>60); EGFR Non-African American 58.2 (>60); Globulin 1.5 g/dL (2-4); Indirect Bilirubin 2.6 mg/dL (0.3-1.0); Magnesium 1.8 mg/dL (1.9-2.7); Potassium 3.6 mmol/L (3.5-5.0); Total Bilirubin 5.5 mg/dL (0.2-1.0); Total Protein 4.7 g/dL (6.4-8.9)
[2016-09-15] MEDS: guaiFENesin ER TAB 600 MG PO SCH (08:48)
[2016-09-15] MEDS: Omeprazole CAP* 20 MG PO SCH (08:49)
[2016-09-15] MEDS: Folic Acid TAB* 1 MG PO SCH (08:50)
[2016-09-15] MEDS: Aspirin Low Dose CHEW TAB* 81 MG PO SCH (08:51)
[2016-09-15] MEDS: Lisinopril TAB* 10 MG PO SCH (08:53)
[2016-09-15] MEDS: Docusate CAP* 100 MG PO SCH (08:53)
[2016-09-15] MEDS: Cefepime(*) 2 GM in NS 0.9% 50 ML* 50 ML IVPB SCH (08:57)
[2016-09-15] MEDS: Metoprolol Succinate XL TAB* 25 MG PO SCH (09:02)
[2016-09-15 10:13] VITALS: BP 149/52
[2016-09-15] MEDS: NS 0.9% 1000 ML* 1,000 ML IV SCH (11:37)
[2016-09-15] MEDS ORDERED: Ondansetron ODT TAB* 4 MG PO PRN (14:37)
--- NOTE | 2016-09-15 19:29 | CONS ---
CONSULTATION REPORT: DATE OF CONSULT: 09/15/16 REQUESTING PHYSICIAN: Dr. Larios. CONSULTING SERVICE: Infectious Disease. REASON FOR CONSULT: Bacteremia. IMPRESSION: 1. Enterobacter cloacae bacteremia due to ascending cholangitis, which resolved spontaneously likely with passage of common bile stone. MRCP did show further bile duct stones. 2. His bilirubin peaked at 26. His direct bilirubin is down to 5 today. Afebrile. Followup blood cultures are negative. 3. Lymphoma, on rituximab. 4. Neutropenia. RECOMMENDATION: He is going to travel back to [place] area where he is from and I think it is reasonable for him to take Bactrim Double Strength tablet twice daily by mouth for 14 days and follow up with GI in that area for ERCP and retrieval of stones. We discussed that this could happen again if he does not have the stones removed and so if he has any return of abdominal pain, fever , or shaking chills, he should seek an ER wherever he is. We discussed that those symptoms could happen regardless of being on antibiotic or the type of antibiotic or route of antibiotic. HISTORY OF PRESENT ILLNESS: This is an 86-year-old man with a history of B- cell lymphoma, on rituximab, admitted with epigastric and right upper quadrant pain that developed on 09/10/16. He started having shaking chills. He came to the ER, had a white blood cell count of 1.7. He had a bilirubin of 13. He was started on cefepime. Blood cultures were taken, 1 of 4 was growing Enterobacter cloacae. Followup blood cultures on 09/11/16 and 09/12/16 are negative. Urine culture was negative. Urinalysis showed urobilinogen, no white cells or nitrites. He has been on cefepime. His fevers have resolved. His abdominal pain is improved and nearly gone. He has no diarrhea. He is eating okay. He was seen by Dr. Partida. He had an MRCP. This showed 2 common bile duct stones that were not obstructing. PAST MEDICAL HISTORY: 1. Marginal zone B-cell lymphoma, treated with rituximab. 2. Pneumonia, July 2016. 3. Cold agglutinin disease. 4. Chronic hemolytic anemia. 5. Splenomegaly. 6. Cirrhosis. 7. History of transfusion reaction. 8. Hypertension. 9. Chronic kidney disease. 10. Gastroesophageal reflux disease. MEDICATIONS: 1. Tylenol. 2. Aspirin. 3. Cefepime 2 g every 12 hours. 4. Melatonin. 5. Lisinopril. 6. Omeprazole. 7. Tramadol. ALLERGIES: PENICILLIN caused rash, LEVAQUIN caused joint pain. FAMILY HISTORY: No recurrent infections or TB. SOCIAL HISTORY: He lives outside of [place], here visiting his granddaughter who is graduating from high school. No sick contacts. REVIEW OF SYSTEMS: All negative to full review of systems except as noted above. PHYSICAL EXAM: Vital Signs: Temperature 37, heart rate 70, respiratory rate 16 , blood pressure 150/50, O2 sat 99% on room air. In general, he is awake, not in distress. HEENT: There is no conjunctival hemorrhage. There is scleral icterus. Oropharynx without lesions. Neck: Supple without nuchal rigidity. Lymph Nodes: There is no cervical, supraclavicular, inguinal, axillary or epitrochlear lymphadenopathy. Heart: Regular rate and rhythm without murmurs, rubs, or gallops. Lungs: Clear to auscultation bilaterally. Abdomen: Soft, nontender, nondistended. There are bowel sounds present. Skin: There is no rash or splinter hemorrhages. Musculoskeletal: There is no spine tenderness to palpation, no joint synovitis. LABORATORY DATA: White blood cell count 1.3, ANC is 900, creatinine is 1, potassium 3.6, bilirubin 5.5, alk phos 230. Please see impressions and recommendations outlined above, which I have discussed with Dr. Larios. Thank you for asking me to see Mr. Torres in consultation. [id number]/[facility] #: [id number] MTDD
--- NOTE | 2016-09-16 08:57 | DS ---
CC: Dr. Vides, [facility], [place], [place], * DISCHARGE/TRANSFER SUMMARY: DATE OF ADMISSION: 09/10/16 DATE OF DISCHARGE: 09/15/16 PRIMARY CARE PROVIDER: Dr. Vides, [facility], [place], [place]. PRIMARY DIAGNOSIS: Cholangitis, secondary to enterobacter. SECONDARY DIAGNOSES: 1. Neutropenic fever, ANC radha'ed at 700. 2. Thrombocytopenia. 3. Marginal B-cell lymphoma. 4. 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 5. Splenomegaly. 6. History of transfusion reaction in the recent past. 7. Hypertension. 8. GERD. 9. CKD. DISCHARGE MEDICATIONS: 1. Glucosamine 1 tab daily. 2. Acetaminophen 650 mg every 6 hours as needed for pain or fever. 3. Metoprolol succinate 25 mg daily. 4. Lisinopril 10 mg daily. 5. Folic acid 800 mg daily. 6. Omeprazole 20 mg daily. 7. Bactrim double strength 1 tab twice daily for 15 days or until disconnected by Dr. Vides. CONSULTATIONS DURING THIS HOSPITAL STAY: Infectious Disease and Gastroenterology. PERTINENT IMAGING DURING THIS HOSPITAL STAY: CT abdomen and pelvis, impression : Bilateral calcified pleural plaques suggesting the possibility of prior asbestos exposure. Large likely benign calcification within the liver accounting for the prior ultrasound abnormality. Splenomegaly. Cholelithiasis. Small amount of ascites. Left inguinal hernia containing nondistended bowel. Small cystic lesion within the pancreatic body. Right femoral neck intertrochanteric fracture, status post operative reduction and internal fixation. THERE IS A 3 MM CALCULUS PRESENT IN THE DISTAL COMMON BILE DUCT AT THE LEVEL OF THE PANCREATIC HEAD. On 09/13/16, MRCP. There are several small gallstones present. In addition, there appeared to be too small calculi in distal common bile duct. No intra or extrahepatic ductal distension is noted. The common bile duct measures a maximum of 6 mm in diameter. There is a small cystic 1 cm lesion in the body of the pancreas as previously described in the CAT scan. PERTINENT LABORATORY DATA: Total bilirubin peaked at 26.7 with the direct portion 21.1, AST and ALT 72 and 78 on the day of discharge, alk phos 237. LDH 192, BUN 21, creatinine 1.18. On the day of discharge, white blood cell count 1.3, ANC 0.9, platelet count 64, hemoglobin . INR 1.1. HISTORY OF PRESENT ILLNESS AND HOSPITAL COURSE: This is an 86-year-old man with past medical history of marginal B-cell lymphoma, completed therapy in September , now on Rituxan maintenance therapy every 4 months, was due 2 days prior to his discharge, but is in his usual state of health since here, visiting family for high school graduation of his granddaughter, developed abdominal pain with some nausea, vomiting, and that of fever, for which he presented to the hospital. His bilirubin was noted to be increasing without evidence of ductal dilation, however, CT indicated a calcified stone in the distal common bile duct. The patient had a peak temperature of 101.4 Fahrenheit on 09/12/16. He developed bacteremia with Enterobacter cloacae, sterling sensitive to antibiotics tested except for amoxicillin, clavulanic acid, and cefazolin. He was treated with cefepime and Flagyl until enterobacter resulted. At which time, he was narrowed to cefepime alone. He remained afebrile for 4 days prior to discharge. His bilirubin began to trend down from 5.5 with a direct portion of 2.9 on the day of discharge. I suspected that he passed the common bile duct stone and MRCP was performed, however, indicated small nonobstructing stone still present in the common bile duct. For this reason, he was discharged on Bactrim, to follow up with Dr. Vides as well as his loom doffer in [place], [place]. His loom doffer deemed the procedure to be too high risk at this time in the setting of thrombocytopenia. However, stones are deemed to be likely infected in the setting of frequent neutropenia, likely need a procedure in the future. I discussed the patient's hospital stay and the presence of the stones with Dr. Vides, and his oncologist in [place], [place] and we will forward these records as well. The patient was given a CD of his imaging studies to return home with. During the course of the hospital stay for the previous 72 hours, the patient was attempted to be transferred to multiple regional hospitals for an emergent ERCP, however, all were at capacity and none could accept this patient. Luckily, he improved with antibiotics alone without an ERCP. There were no complications during this patient's hospital stay. At followup, please; 1. Please evaluate for need for ERCP, which will likely include repeat MRCP. 2. Please follow CBC as I am sure you will for resolution of pancytopenia or at least improvement to the point he will not need blood transfusion. I did consult with our underground repairer, who agreed with holding the blood transfusion on the day of discharge. 3. No other specific labs or vitals that need followup. Reasons to return to the hospital or at any hospital along his trip back to [place], [place], including recurrent symptoms most importantly fever, chills , night sweats, chest pain, shortness of breath, cough, nausea, vomiting, lightheadedness, loss of consciousness, near loss of consciousness, abdominal pain, increasing jaundice, or inability to obtain or tolerate medications discussed with the patient and his and they acknowledged understanding. Greater than 60 minutes was spent on this discharge of this patient, greater than half was spent face to face with the patient. [id number]/[facility] #: [id number] CHAR
== END 2016-09-15 16:40 | disposition short-term general hospital (02) | DRG 445 ==
LOC: ED 20:00 → MED 23:31
PROVIDERS: ADMIT Hospitalist; ATTEND Internal Medicine
DX: K83.0 Cholangitis (principal); C85.10 Unspecified B-cell lymphoma, unspecified site; D61.818 Other pancytopenia; D68.9 Coagulation defect, unspecified; D70.9 Neutropenia, unspecified; D58.9 Hereditary hemolytic anemia, unspecified; R16.1 Splenomegaly, not elsewhere classified; D69.6 Thrombocytopenia, unspecified; I13.10 Hypertensive heart and chronic kidney disease without heart failure, with stage 1 through stage 4 chronic kidney disease, or unspecified chronic kidney disease; R50.81 Fever presenting with conditions classified elsewhere; K21.9 Gastro-esophageal reflux disease without esophagitis; N18.9 Chronic kidney disease, unspecified; E80.6 Other disorders of bilirubin metabolism; B96.89 Other specified bacterial agents as the cause of diseases classified elsewhere
CPT/HCPCS: 36415; 71010; 74178; 74181; 76376; 76705; 80048; 80053; 80076; 81003; 82150; 82550; 83605; 83615; 83690; 83735; 83880; 84484; 85025; 85060; 85610; 85730; 86140; 87040; 87077; 87086; 87186; 87205; 87899; 93005; 94760; 99203; 99285; A9270-GY; G0463; J0456; J0692; J0696; J1644; Q9967